=== PATIENT | female | born 1940 | race Caucasian/White ===

== ENCOUNTER 2017-09-12 12:27 | Emergency (ER) | payer OTHER ==
[2017-09-12] MEDS ORDERED: NA CHLORIDE 0.9% 1,000 ML ONE (13:44)
[2017-09-12 13:47] LABS: Absolute Lymphocytes (CBC) 1.4 K/uL (0.7-4.9); Absolute Monocytes 0.6 K/uL (0.1-1.3); Absolute Neutrophil 5.8 K/uL (1.8-8.0); Basophils % 0.3 % (0-1.3); Eosinophils % 0.6 % (0-4.4); Hematocrit 34.2 % (36.0-45.0); Lymphocytes % 17.9 % (15.3-44.8); MCH 30.4 pg (27.0-35.0); MCV 91.4 fL (80-100); MPV 9.2 fL (7.6-11.3); Monocytes % 7.5 % (3.3-12.3); RBC Red Blood Cell Count 3.74 M/uL (3.86-4.86)
[2017-09-12 13:52] LABS: Protime INR 2.24
[2017-09-12 14:01] LABS: Potassium 3.8 mEq/L (3.6-5.0)
--- NOTE | 2017-09-12 14:02 | RAD REPORT ---
EXAM DESCRIPTION: CT - Head Brain Wo Cont - 09/12/2017 1:55 pm CLINICAL HISTORY: Headache, blurry vision COMPARISON: 06/05/2010 TECHNIQUE: All CT scans are performed using dose optimization technique as appropriate and may inclu de automated exposure control or mA/KV adjustment according to patient size. FINDINGS: No intracranial hemorrhage, hydrocephalus or extra-axial fluid collection.Old lacunar infa rct is seen left basal ganglia. Mild brain atrophy with mild periventricular and deep white matter ch ronic microvascular ischemic changes.No areas of brain edema or evidence of midline shift. Extensive paranasal sinus opacification predominately in the ethmoid air cells noted. The calvarium i s intact. IMPRESSION: No acute intracranial abnormality. Prominent ethmoid sinusitis.
[2017-09-12 14:04] LABS: Albumin 3.6 g/dL (3.2-5.5); Bilirubin Total 0.9 mg/dL (0.3-1.2)
[2017-09-12 16:01] LABS: Urine Bacteria >50 /HPF (<20); Urine RBC <5 /HPF (NONE SEEN)
[2017-09-12 16:02] LABS: Urine Culture Reflex Order REFLEXED
[2017-09-12 16:02] LABS: Urine Blood TRACE (NEG); Urine Glucose NEGATIVE (NEG); Urine Protein 2+ (NEG); Urine pH 6.5 (5.0-7.0)
--- NOTE | 2017-09-12 16:14 | EDPHYS ---
Physician Documentation [facility] Name: Leeann Villalba Age: 77 yrs Sex: Female : 1940 Arrival Date: 09/12/2017 Time: 12:31 Bed 25 Private MD: ED Physician Edin Alvarado HPI: 09/12 14:00 This 77 yrs old Female presents to ER via Wheelchair with complaints of High pm1 Blood Sugar. 14:00 The patient or guardian reports hyperglycemia, that was potentially precipitated by no pm1 particular event, Treatment prior to arrival includes: ingestion of sugary substance, 1 spoon of peanut butter given by granddaughter to "help lower blood sugar". Onset: The symptoms/episode began/occurred today. Associated signs and symptoms: Pertinent negatives: diarrhea, nausea, vomiting. The patient has experienced similar episodes in the past, a few times. The patient has not recently seen a physician, and does not have an established primary care provider, just moved to [facility]. Patient with elevated blood sugar this AM with reading of 190. Patient was given a spoonful of peanut butter by granddaughter to lower the blood sugar and her finger stick was 270 prior to arrival. Patient reports that her blood sugars are actually well controlled and she usually has some blurry vision when her sugars are in the 200 range. Patient reports to me no focal motor deficits or gait changes from her prior stroke. 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 Historical: - Allergies: 12:41 No Known Allergies; aj - Home Meds: 14:32 metoprolol tartrate 25 mg Oral tab 1 tab once daily [Active]; ferrous sulfate 325 mg kr2 (65 mg iron) Oral tab daily [Active]; levothyroxine 100 mcg tab 1 tab once daily [Active]; aspirin 81 mg Oral TbEC 1 tab once daily [Active]; warfarin 1 mg Oral tab 1 tab once daily [Active]; warfarin 4 mg Oral tab 1 tab once daily [Active]; metformin 500 mg Oral tab 2 tabs once a day with evening meal [Active]; donepezil 5 mg oral tab 1 tab once daily [Active]; atorvastatin 40 mg oral tab 1 tab once daily [Active]; - PMHx: 12:41 CVA; Diabetes - NIDDM; Myocardial infarction; Hypertension; Hyperlipidemia; aj 14:32 Hypothyroidism; kr2 - PSHx: 12:41 None; aj - Immunization history:: Adult Immunizations up to date. - Social history:: Smoking status: Patient/guardian denies using tobacco. ROS: 14:00 Constitutional: Negative for fever, chills, and weight loss, ENT: Negative for injury, pm1 pain, and discharge, Neck: Negative for injury, pain, and swelling, Cardiovascular: Negative for chest pain, palpitations, and edema, Respiratory: Negative for shortness of breath, cough, wheezing, and pleuritic chest pain, Abdomen/GI: Negative for abdominal pain, nausea, vomiting, diarrhea, and constipation, Back: Negative for injury and pain, : Negative for injury, bleeding, discharge, and swelling, MS/Extremity: Negative for injury and deformity, Skin: Negative for injury, rash, and discoloration, Neuro: Negative for headache, weakness, numbness, tingling, and seizure. 14:00 Eyes: Positive for blurry vision, Negative for vision loss. Exam: 14:00 Constitutional: This is a well developed, well nourished patient who is awake, alert, pm1 and in no acute distress. Head/Face: Normocephalic, atraumatic. Eyes: Pupils equal round and reactive to light, extra-ocular motions intact. Lids and lashes normal. Conjunctiva and sclera are non-icteric and not injected. Cornea within normal limits. Periorbital areas with no swelling, redness, or edema. ENT: Nares patent. No nasal discharge, no septal abnormalities noted. Tympanic membranes are normal and external auditory canals are clear. Oropharynx with no redness, swelling, or masses, exudates, or evidence of obstruction, uvula midline. Mucous membranes moist. Neck: Trachea midline, no thyromegaly or masses palpated, and no cervical lymphadenopathy. Supple, full range of motion without nuchal rigidity, or vertebral point tenderness. No Meningismus. Chest/axilla: Normal chest wall appearance and motion. Nontender with no deformity. No lesions are appreciated. Cardiovascular: Regular rate and rhythm with a normal S1 and S2. No gallops, murmurs, or rubs. Normal PMI, no JVD. No pulse deficits. Respiratory: Lungs have equal breath sounds bilaterally, clear to auscultation and percussion. No rales, rhonchi or wheezes noted. No increased work of breathing, no retractions or nasal flaring. Abdomen/GI: Soft, non-tender, with normal bowel sounds. No distension or tympany. No guarding or rebound. No evidence of tenderness throughout. Back: No spinal tenderness. No costovertebral tenderness. Full range of motion. Skin: Warm, dry with normal turgor. Normal color with no rashes, no lesions, and no evidence of cellulitis. MS/ Extremity: Pulses equal, no cyanosis. Neurovascular intact. Full, normal range of motion. 14:00 Neuro: Orientation: is normal, Motor: moves all fours, strength is 5/5 in the right arm and right leg, strength is 4/5 in the left arm, Strength is 3/5 in the left leg, Baseline strength per patient. Vital Signs: 12:41 BP 129 / 67; Pulse 59; Resp 20; Temp 97.9; Pulse Ox 99% on R/A; Weight 78.93 kg; Height aj 5 ft. 4 in. (162.56 cm); Pain 0/10; 13:39 BP 130 / 48; Pulse 60; Resp 16; Pulse Ox 99% ; kr2 14:30 BP 134 / 30; Pulse 59; Resp 18; Pulse Ox 100% on R/A; kr2 15:17 BP 150 / 45; Pulse 59; Resp 17; Pulse Ox 98% on R/A; kr2 16:22 BP 154 / 96; Pulse 67; Resp 15; Pulse Ox 96% on R/A; kr2 12:41 Body Mass Index 29.87 (78.93 kg, 162.56 cm) aj MDM: 12:57 Patient medically screened. [facility] 16:13 Data reviewed: vital signs. Data interpreted: Pulse oximetry: on room air is 98 %. pm1 Interpretation: normal. Counseling: I had a detailed discussion with the patient and/or guardian regarding: the historical points, exam findings, and any diagnostic results supporting the discharge/admit diagnosis, lab results, radiology results, the need for outpatient follow up, to return to the emergency department if symptoms worsen or persist or if there are any questions or concerns that arise at home. 16:29 ED course: patient takes warfarin. Will treat patient with keflex due to no pm1 interactions found with warfarin pending urine culture result. 09/12 13:16 Order name: CBC with Diff; Complete Time: 14:08 pm1 09/12 13:16 Order name: CMP; Complete Time: 14:08 pm1 09/12 13:16 Order name: PT-INR; Complete Time: 14:08 pm1 09/12 13:16 Order name: Ptt, Activated; Complete Time: 14:08 pm1 09/12 15:11 Order name: Urine Microscopic Only; Complete Time: 16:05 pm1 09/12 15:25 Order name: Urine Dipstick--Ancillary (enter results); Complete Time: 16:05 bd 09/12 13:16 Order name: IV Saline Lock; Complete Time: 13:38 pm1 09/12 13:16 Order name: Urine Dipstick-Ancillary (obtain specimen); Complete Time: 15:14 pm1 09/12 13:16 Order name: CT Head Brain wo Cont; Complete Time: 14:08 pm1 09/12 13:16 Order name: Glucose Level; Complete Time: 13:38 pm1 09/12 16:03 Order name: Urine Culture EDMS 09/12 15:23 Order name: Glucose Level; Complete Time: 15:23 kr2 Administered Medications: 13:40 Drug: NS 0.9% 1000 ml Route: IV; Rate: 1000 ml; Site: right antecubital; kr2 15:15 Follow up: Response: No adverse reaction; IV Status: Completed infusion kr2 16:21 Drug: Rocephin 1 grams Route: IV; Rate: calculated rate; Site: right antecubital; kr2 16:51 Follow up: Response: No adverse reaction; IV Status: Completed infusion kr2 Point of Care Testing: Blood Glucose: 13:28 Blood Glucose: 277 mg/dL; kr2 15:23 Blood Glucose: 197 mg/dL; kr2 Ranges: Critical Glucose Levels:Adult <50 mg/dl or >400 mg/dl <40 mg/dl or >180 mg/dl Disposition: 09/13 10:53 Co-signature as Attending Physician, Edin Alvarado MD I agree with the assessment and ladonna plan of care. Disposition: 09/12/17 16:14 Discharged to Home. Impression: Urinary tract infection, site not specified, Hyperglycemia, unspecified. - Condition is Stable. - Discharge Instructions: Hyperglycemia, Urinary Tract Infection, Blood Glucose Monitoring, Adult. - Prescriptions for Keflex 500 mg Oral Capsule - take 1 capsule by ORAL route every 12 hours for 10 days; 20 capsule. - Medication Reconciliation Form, Thank You Letter, Antibiotic Education form. - Follow up: Emergency Department; When: As needed; Reason: Worsening of condition. Follow up: Private Physician; When: 2 - 3 days; Reason: Recheck today's complaints, Continuance of care, Re-evaluation by your physician. - Problem is new. - Symptoms have improved. Signatures: Dispatcher [employer] EDMS Maria Dolores Gunderson RN RN Edin Adair MD MD cha Marinas, Patrick, REGIONAL EDUCATION MANAGER REGIONAL EDUCATION MANAGER pm1 Nathalie Lazar RN RN kr2 Corrections: (The following items were deleted from the chart) 09/12 13:52 13:16 Urine Test ordered. pm1 kr2 14:32 12:41 Home Meds: Unable to obtain; more [place] 16:14 16:14 09/12/2017 16:14 Discharged to Home. Impression: Urinary tract infection, site pm1 not specified; Hyperglycemia, unspecified. Condition is Stable. Forms are Medication Reconciliation Form, Thank You Letter, Antibiotic Education, Prescription Opioid Use. pm1 16:53 16:14 09/12/2017 16:14 Discharged to Home. Impression: Urinary tract infection, site kr2 not specified; Hyperglycemia, unspecified. Condition is Stable. Forms are Medication Reconciliation Form, Thank You Letter, Antibiotic Education, Prescription Opioid Use. Follow up: Emergency Department; When: As needed; Reason: Worsening of condition. Follow up: Private Physician; When: 2 - 3 days; Reason: Recheck today's complaints, Continuance of care, Re-evaluation by your physician. Problem is new. Symptoms have improved. pm1
--- NOTE | 2017-09-12 16:14 | ER ---
Nurse's Notes [facility] Name: Leeann Villalba Age: 77 yrs Sex: Female : 1940 Arrival Date: 09/12/2017 Time: 12:31 Bed 25 Private MD: Diagnosis: Urinary tract infection, site not specified;Hyperglycemia, unspecified Presentation: 09/12 12:38 Presenting complaint: Patient states: Reports high blood sugar reading at home, 190 aj this and and [address]. Patient also reports that her vision is blurry and she has had increased difficulty ambulating, reporting most difficulty using her left arm and leg, damaged from pervious stroke. Transition of care: patient was not received from another setting of care. Onset of symptoms was September 11, 2017. Initial Sepsis Screen: Does the patient meet any 2 criteria? No. Patient's initial sepsis screen is negative. Does the patient have a suspected source of infection? No. Patient's initial sepsis screen is negative. Care prior to arrival: None. 12:38 Method Of Arrival: Wheelchair aj 12:38 Acuity: JEANA 3 aj Triage Assessment: 12:41 General: Appears in no apparent distress. comfortable, Behavior is calm, cooperative, aj appropriate for age. Pain: Denies pain. Neuro: Level of Consciousness is awake, alert, obeys commands, Oriented to person, place, time, situation, Appropriate for age Global Logistics Manager are weak on left Weakness in left arm(s) leg(s) Gait is unsteady, Speech is slurred, Facial symmetry appears normal, Pupils are constricted, Reports blurred vision. Respiratory: Airway is patent Respiratory effort is even, unlabored, Respiratory pattern is regular, symmetrical. GI: No signs and/or symptoms were reported involving the gastrointestinal system. Derm: Skin is intact, is healthy with good turgor, Skin is pink, warm \T\ dry. normal. Historical: - Allergies: 12:41 No Known Allergies; aj - Home Meds: 14:32 metoprolol tartrate 25 mg Oral tab 1 tab once daily [Active]; ferrous sulfate 325 mg kr2 (65 mg iron) Oral tab daily [Active]; levothyroxine 100 mcg tab 1 tab once daily [Active]; aspirin 81 mg Oral TbEC 1 tab once daily [Active]; warfarin 1 mg Oral tab 1 tab once daily [Active]; warfarin 4 mg Oral tab 1 tab once daily [Active]; metformin 500 mg Oral tab 2 tabs once a day with evening meal [Active]; donepezil 5 mg oral tab 1 tab once daily [Active]; atorvastatin 40 mg oral tab 1 tab once daily [Active]; - PMHx: 12:41 CVA; Diabetes - NIDDM; Myocardial infarction; Hypertension; Hyperlipidemia; aj 14:32 Hypothyroidism; kr2 - PSHx: 12:41 None; aj - Immunization history:: Adult Immunizations up to date. - Social history:: Smoking status: Patient/guardian denies using tobacco. Screenin:40 Abuse screen: Denies threats or abuse. Denies injuries from another. Nutritional kr2 screening: No deficits noted. Tuberculosis screening: No symptoms or risk factors identified. Fall Risk IV access (20 points). Assessment: 13:41 General: Appears in no apparent distress. comfortable, well groomed, well developed, kr2 well nourished, Behavior is calm, cooperative, appropriate for age. Pain: Denies pain. Neuro: Level of Consciousness is awake, alert, obeys commands, Oriented to person, place, time, situation. Cardiovascular: Capillary refill < 3 seconds in bilateral fingers Patient's skin is warm and dry. Respiratory: Airway is patent Respiratory effort is even, unlabored, Respiratory pattern is regular, symmetrical. GI: Abdomen is flat, non-distended. : No signs and/or symptoms were reported regarding the genitourinary system. Denies burning with urination. EENT: Oral mucosa is moist. Reports blurred vision since this morning. Derm: Skin is intact, is fragile, with poor turgor Skin is pink, warm \T\ dry. Musculoskeletal: Circulation, motion, and sensation intact. 15:14 Reassessment: Patient appears in no apparent distress at this time. Patient and/or kr2 family updated on plan of care and expected duration. Pain level reassessed. Patient is alert, oriented x 3, equal unlabored respirations, skin warm/dry/pink. States her vision has improved Patient denies pain at this time. Patient states symptoms have improved. 16:21 Reassessment: Patient appears in no apparent distress at this time. Patient and/or kr2 family updated on plan of care and expected duration. Pain level reassessed. Patient is alert, oriented x 3, equal unlabored respirations, skin warm/dry/pink. Patient denies pain at this time. Patient states feeling better. Vital Signs: 12:41 BP 129 / 67; Pulse 59; Resp 20; Temp 97.9; Pulse Ox 99% on R/A; Weight 78.93 kg; Height aj 5 ft. 4 in. (162.56 cm); Pain 0/10; 13:39 BP 130 / 48; Pulse 60; Resp 16; Pulse Ox 99% ; kr2 14:30 BP 134 / 30; Pulse 59; Resp 18; Pulse Ox 100% on R/A; kr2 15:17 BP 150 / 45; Pulse 59; Resp 17; Pulse Ox 98% on R/A; kr2 16:22 BP 154 / 96; Pulse 67; Resp 15; Pulse Ox 96% on R/A; kr2 12:41 Body Mass Index 29.87 (78.93 kg, 162.56 cm) aj ED Course: 12:31 Patient arrived in ED. sb2 12:40 Triage completed. aj 12:41 Arm band placed on left wrist. Patient placed in waiting room, Patient notified of wait aj time. 12:54 Nathalie Lazar, SHLOMO is Primary Nurse. kr2 12:57 Jg Roberson NP is PHCP. pm1 12:57 Edin Alvarado MD is Attending Physician. pm1 13:20 Patient has correct armband on for positive identification. Bed in low position. Call kr2 light in reach. Side rails up X 1. Adult w/ patient. Pulse ox on. NIBP on. Door closed. Warm blanket given. Head of bed elevated. 13:30 Inserted saline lock: 20 gauge in right antecubital area, using aseptic technique. kr2 Blood collected. 13:55 CT Head Brain wo Cont In Process Unspecified. EDMS 16:52 No provider procedures requiring assistance completed. IV discontinued, intact, kr2 bleeding controlled, No redness/swelling at site. Pressure dressing applied. Administered Medications: 13:40 Drug: NS 0.9% 1000 ml Route: IV; Rate: 1000 ml; Site: right antecubital; kr2 15:15 Follow up: Response: No adverse reaction; IV Status: Completed infusion kr2 16:21 Drug: Rocephin 1 grams Route: IV; Rate: calculated rate; Site: right antecubital; kr2 16:51 Follow up: Response: No adverse reaction; IV Status: Completed infusion kr2 Point of Care Testing: Blood Glucose: 13:28 Blood Glucose: 277 mg/dL; kr2 15:23 Blood Glucose: 197 mg/dL; kr2 Ranges: Outcome: 16:14 Discharge ordered by MD. pm1 16:52 Discharged to home via wheelchair, with family. kr2 16:52 Condition: good 16:52 Discharge instructions given to patient, family, Instructed on discharge instructions, follow up and referral plans. medication usage, Demonstrated understanding of instructions, follow-up care, medications, Prescriptions given X 1. 16:53 Patient left the ED. kr2 Addendum: 09/15/2017 09:26 Addendum: Culture Results: Positive urine culture. No further action required. Other: i w pt was prescribed Keflex, bacteria is sensitive to other cephalosporins, pt was told to follow up with PCP. Signatures: Dispatcher [employer] EDMaria Dolores Daugherty RN RN aj Williams, Irene, RN RN iw Marinas, Patrick, AMANDO ASSISTANT ACCOUNTING MANAGER pm1 Nathalie Lazar RN RN kr2 Elvia Manzanares sb2 Corrections: (The following items were deleted from the chart) 09/12 14:32 12:41 Home Meds: Unable to obtain; more barajas2 15:17 13:41 EENT: Oral mucosa is moist. kr2 kr2
[2017-09-12] MEDS ORDERED: CEFTRIAXONE/SWI 1gm 1 GM/10 ML SYR ONE (16:17)
== END 2017-09-12 16:53 | disposition home or self-care (01) ==
LOC: ER 12:27
DX: N39.0 Urinary tract infection, site not specified (principal); I10 Essential (primary) hypertension; E78.5 Hyperlipidemia, unspecified; E03.9 Hypothyroidism, unspecified; I25.2 Old myocardial infarction; Z79.01 Long term (current) use of anticoagulants; Z79.82 Long term (current) use of aspirin
CPT/HCPCS: 36415; 70450; 80053; 82962 ×2; 85025; 85610; 85730; 87077; 87086; 87088; 87186; 96361; 96365; 99284; J0696; J7030; 81003; 81015

== ENCOUNTER 2018-03-22 11:56 | Emergency (ER) | payer OTHER ==
[2018-03-22 13:03] LABS: Absolute Lymphocytes (CBC) 0.8 K/uL (0.7-4.9); Absolute Monocytes 0.3 K/uL (0.1-1.3); Absolute Neutrophil 4.3 K/uL (1.8-8.0); Basophils % 0.4 % (0-1.3); Eosinophils % 0.4 % (0-4.4); Hematocrit 34.4 % (36.0-45.0); Lymphocytes % 14.2 % (15.3-44.8); MCH 31.1 pg (27.0-35.0); MCV 90.4 fL (80-100); MPV 8.6 fL (7.6-11.3); Monocytes % 5.1 % (3.3-12.3); RBC Red Blood Cell Count 3.81 M/uL (3.86-4.86)
--- NOTE | 2018-03-22 13:16 | RAD REPORT ---
EXAM DESCRIPTION: CT - Head Brain Wo Cont - 03/22/2018 12:54 pm CLINICAL HISTORY: DIZZINESS Drowsiness, CVA COMPARISON: Head Brain Wo Cont dated 09/12/2017; HEAD BRAIN W O CONTRAST dated 06/05/2010 TECHNIQUE: All CT scans are performed using dose optimization technique as appropriate and may inclu de automated exposure control or mA/KV adjustment according to patient size. FINDINGS: There is a 10 x 10 mm hyperdense focal hemorrhage seen in the right cerebellum abutting th e fourth ventricle adjacent to the right cerebellar peduncle.No extra-axial fluid collection or hydro cephalus seen. No midline shift. Mild brain atrophy present. The paranasal sinuses and mastoids are clear. The calvarium is intact. IMPRESSION: 10 x 10 mm hyperdense focal bleed medial right cerebellar hemisphere. Findings were discussed with HEIDI Osborne in the ER 1:11 p.m. 03/22/2018 by telephone.
--- NOTE | 2018-03-22 13:17 | RAD REPORT ---
EXAM DESCRIPTION: RAD - Chest Single View - 03/22/2018 1:02 pm CLINICAL HISTORY: CHEST PAIN Chest pain. COMPARISON: CHEST SINGLE VIEW dated 06/05/2010; CHEST SINGLE VIEW dated 12/26/2009 FINDINGS: Portable technique limits examination quality. Minimal linear atelectasis suspected left lung base. The lungs are otherwise clear. The heart is norm al in size. No displaced fractures.
[2018-03-22 13:21] LABS: ALT/SGPT 26 U/L (12-78); AST/SGOT 18 U/L (15-37); Albumin 3.7 g/dL (3.4-5.0); Alkaline Phosphatase 123 U/L (45-117); BUN Blood Urea Nitrogen 15 mg/dL (7-18); Bicarbonate 25 mmol/L (21-32); Bilirubin Direct 0.2 mg/dL (0-0.2); Bilirubin Total 0.6 mg/dL (0.2-1.0); Glucose Level 198 mg/dL (74-106); NT PRO-BNP 2050 pg/mL (<450); Potassium 3.9 mmol/L (3.5-5.1); Protein, Total 7.3 g/dL (6.4-8.2); Sodium Level 142 mmol/L (136-145); Troponin (Emerg Dept Use Only) < 0.02 ng/mL (0.0-0.045)
[2018-03-22 13:23] LABS: Protime INR 12.61
[2018-03-22] MEDS ORDERED: VITAMIN K (ADULT) 10 MG/ML ONE (13:28)
[2018-03-22] MEDS ORDERED: ONDANSETRON 4 MG/2 ML VIAL ONE ×2 (13:28→14:02)
--- NOTE | 2018-03-22 13:42 | ER ---
Nurse's Notes [facility] Name: Leeann Villalba Age: 77 yrs Sex: Female : 1940 Arrival Date: 03/22/2018 Time: 12:00 Bed 6 Private MD: Diagnosis: Non traumatic cerebellar hemorrhage ;Coumadin Toxicity Presentation: 03/22 12:00 Presenting complaint: EMS states: Pt c/o N/V and dizziness for approx 12 hrs, hx of CVA ph w/ L sided deficits, denies abdominal pain or fever. Transition of care: patient was not received from another setting of care. Onset of symptoms was March 22, 2018. Risk Assessment: Do you want to hurt yourself or someone else? Patient reports no desire to harm self or others. Care prior to arrival: Glucose check: 178. 12:00 Method Of Arrival: EMS: [facility] ph 12:00 Acuity: JEANA 3 ph 12:09 Initial Sepsis Screen: Does the patient meet any 2 criteria? No. Patient's initial ph sepsis screen is negative. Does the patient have a suspected source of infection? No. Patient's initial sepsis screen is negative. 13:33 Acuity: JEANA 2 ph Historical: - Allergies: 12:06 No Known Allergies; ph - Home Meds: 12:06 aspirin 81 mg Oral TbEC 1 tab once daily [Active]; atorvastatin 40 mg Oral tab 1 tab ph once daily [Active]; donepezil 5 mg Oral tab 1 tab once daily [Active]; ferrous sulfate 325 mg (65 mg iron) Oral tab daily [Active]; levothyroxine 100 mcg tab 1 tab once daily [Active]; metformin 500 mg Oral tab 2 tabs once a day with evening meal [Active]; metoprolol tartrate 25 mg Oral tab 1 tab once daily [Active]; warfarin 4 mg Oral tab 1 tab once daily [Active]; - PMHx: 12:06 CVA; Diabetes - NIDDM; Hyperlipidemia; Hypertension; Hypothyroidism; Myocardial ph infarction; - PSHx: 12:06 None; ph - Immunization history:: Adult Immunizations unknown. - Social history:: The patient lives at home. - Ebola Screening: : No symptoms or risks identified at this time. Screenin:08 Abuse screen: Denies threats or abuse. Denies injuries from another. Nutritional ph screening: No deficits noted. Tuberculosis screening: No symptoms or risk factors identified. Fall Risk Fall in past 12 months (25 points). Secondary diagnosis (15 points) CVA, IV access (20 points). Ambulatory Aid- None/Bed Rest/Nurse Assist (0 pts). Gait- Weak (10 pts.). Mental Status- Oriented to own ability (0 pts). Total Gabriel Fall Scale indicates High Risk Score (45 or more points). Fall prevention measures have been instituted. Frequent Obs/Assessments Occuring Family Present and informed to notify staff if the need to leave the bedside As available patient and family educated on Fall Prevention Program and Strategies. Assessment: 12:44 General: Appears in no apparent distress. uncomfortable, slender, Behavior is calm, ph cooperative, appropriate for age, Denies fever, chills. Pain: Denies pain. Neuro: Level of Consciousness is awake, alert, obeys commands, Oriented to person, place, time, situation, Reports dizziness, since " early this morning" Denies difficulty swallowing, numbness headache. Cardiovascular: Reports lightheadedness, Denies chest pain, shortness of breath, syncope, Capillary refill < 3 seconds in bilateral fingers Patient's skin is warm and dry. Rhythm is sinus bradycardia. Respiratory: Airway is patent Respiratory effort is even, unlabored. GI: Abdomen is flat, non-distended, Bowel sounds present X 4 quads. Reports nausea, vomiting, Patient currently denies abdominal pain, diarrhea. : Denies burning with urination, urinary frequency. Derm: Skin is intact, is fragile, is thin, Skin is pink, warm \\T\\ dry. Bruising that is dark purple, on right bicep. Musculoskeletal: Circulation, motion, and sensation intact. Range of motion: limited in L arm and leg r/t previous CVA. 12:52 Reassessment: Patient appears in no apparent distress at this time. Patient and/or ph family updated on plan of care and expected duration. Pain level reassessed. Patient is alert, oriented x 3, equal unlabored respirations, skin warm/dry/pink. Pt taken to CT via stretcher. 13:40 Reassessment: Consent for FFP signed by pt's daughter. aa5 13:50 Reassessment: Report given to [facility]. Reassessment: Patient appears in no apparent ph distress at this time. Patient and/or family updated on plan of care and expected duration. Pain level reassessed. Patient is alert, oriented x 3, equal unlabored respirations, skin warm/dry/pink. Pt remains awake and alert, GCS 15, continues to c/o nausea and dizziness, denies headache at this time, awaiting [facility] for transport. 14:08 Reassessment: Patient appears in no apparent distress at this time. [facility] at bedside at this time. 14:24 Reassessment: Patient appears in no apparent distress at this time. Patient is alert, ph oriented x 3, equal unlabored respirations, skin warm/dry/pink. FFPs received from blood bank and given to [facility] to transfuse during transport, pt taken to [facility]. Vital Signs: 12:02 BP 179 / 90; Pulse 75; Resp 20; Temp 98.8; Pulse Ox 95% on R/A; Weight 77.11 kg; Height ph 5 ft. 4 in. (162.56 cm); Pain 0/10; 12:53 BP 138 / 57; Pulse 71; Resp 16; Pulse Ox 97% on R/A; ph 13:35 BP 163 / 69; Pulse 72; ph 13:47 BP 134 / 72; Pulse 74; Resp 18; Pulse Ox 97% on R/A; ph 14:07 BP 116 / 71; Pulse 72 MON; Resp 16; Pulse Ox 94% on R/A; Pain 0/10; sg 12:02 Body Mass Index 29.18 (77.11 kg, 162.56 cm) ph [place] Coma Score: 14:07 Eye Response: spontaneous(4). Verbal Response: oriented(5). Motor Response: obeys sg commands(6). Total: 15. ED Course: 12:00 Patient arrived in ED. ph 12:01 Anton Martinez PA is PHCP. jr8 12:01 Sudheer Marcelo MD is Attending Physician. jr8 12:02 Triage completed. ph 12:06 Arm band placed on. ph 12:09 Patient has correct armband on for positive identification. Placed in gown. Bed in low ph position. Call light in reach. Side rails up X2. manager monitoring on. Pulse ox on. NIBP on. Warm blanket given. 12:10 EKG done, by ED staff, reviewed by nAton GORDON. jb1 12:44 Kathy Mullins, RN is Primary Nurse. ph 12:52 Initial lab(s) drawn, by me, sent to lab. Inserted saline lock: 22 gauge in right jb1 antecubital area, using aseptic technique. Blood collected. 12:54 CT Head Brain wo Cont In Process Unspecified. EDMS 13:01 XRAY Chest (1 view) In Process Unspecified. EDMS 13:16 initiated a transfer with Britany at the [facility] transfer center. eb 13:23 Notified Nurse Practitioner and/or Physician Terrazzo Journeyman of a critical lab result(s), PT aa5 152.7 and INR 12.61. 13:[address] Pathak the Neurosurgeon cellular plastics cutter inspector structural bonding for [facility] with PA for eb patient transfer consulation. 13:35 Administrative approval given by Rachel Diaz at the [facility] Transfer Center/ eb Dr. Pathak has accepted the patient in transfer/ Pt going to [address] [place] [address] bed 14/ report to be called to [phone]. 13:38 called the [employer] flight crew and spoke with ADDISON/ He will call back with an eta of eb the helicopter. 13:43 ADDISON from [employer] flight called and connected with the nurse of the patient/ eb [facility] is showing a 20 min ETA. 14:05 Inserted saline lock: 22 gauge in right forearm, using aseptic technique. IV inserted sg by Jean KEENAN. 14:25 No provider procedures requiring assistance completed. Patient transferred, IV remains ph in place. Administered Medications: 13:30 Drug: Vitamin K1 10 mg Route: Sub-Q; Site: right lower abdomen; ph 14:00 Follow up: Response: No adverse reaction ph 13:30 Drug: Zofran 4 mg Route: IVP; Site: right antecubital; ph 13:45 Follow up: Response: No adverse reaction; Nausea unchanged; Vomiting unchanged ph 13:43 Drug: Labetalol 10 mg Route: IVP; Infused Over: 2 mins; Site: right antecubital; ph 14:00 Follow up: Response: No adverse reaction; Blood pressure is lowered ph 13:57 Drug: Zofran 4 mg Route: IVP; Site: right antecubital; ph 14:15 Follow up: Response: No adverse reaction ph Outcome: 13:41 ER care complete, transfer ordered by MD. hoffman 14:28 Patient left the ED. ph 14:28 Transferred by helicopter to [facility], Transfer form completed. ph X-rays sent w/ patient. 14:28 Condition: stable 14:28 Instructed on the need for transfer. Signatures: Dispatcher [employer] EDMS Christopher Jean-Baptiste jb1 Eddie Mendez RN RN Paola Pisano RN RN Anton Mccullough PA PA jr8 Kathy Mullins RN RN ph MarceloSudheer white MD MD gs Botello, Elizabeth eb Corrections: (The following items were deleted from the chart) 12:23 12:06 Home Meds: warfarin 1 mg Oral tab 1 tab once daily; ph ph 12:53 12:52 EKG done, by ED staff, reviewed by Anton colón1 jb1 18:51 18:48 Condition: stable ph ph 18:51 18:48 Transferred by helicopter to [facility], Transfer form ph completed. X-rays sent w/ patient. ph 18:51 18:48 Instructed on the need for transfer, ph ph
--- NOTE | 2018-03-22 13:43 | EDPHYS ---
Physician Documentation [facility] Name: Leeann Villalba Age: 77 yrs Sex: Female : 1940 Arrival Date: 03/22/2018 Time: 12:00 Bed 6 Private MD: ED Physician Sudheer Marcelo HPI: 03/22 13:00 This 77 yrs old Female presents to ER via EMS with complaints of jr8 Nausea/Vomiting, Dizziness. 13:00 The patient presents to the emergency department with nausea, vomiting. Onset: The jr8 symptoms/episode began/occurred acutely, today. Possible causes: unknown. The symptoms are aggravated by nothing. The symptoms are alleviated by nothing. Associated signs and symptoms: Pertinent positives: dizziness. Severity of symptoms: At their worst the symptoms were moderate in the emergency department the symptoms are unchanged. The patient has not experienced similar symptoms in the past. The patient has not recently seen a physician. Stated that she woke up with dizziness, n/v that started all at the same time. Denies any other symptoms . 13:58 Onset: The symptoms/episode began/occurred this morning, at 02:00. Associated signs and gs symptoms: Pertinent positives: vomiting. Historical: - Allergies: 12:06 No Known Allergies; ph - Home Meds: 12:06 aspirin 81 mg Oral TbEC 1 tab once daily [Active]; atorvastatin 40 mg Oral tab 1 tab ph once daily [Active]; donepezil 5 mg Oral tab 1 tab once daily [Active]; ferrous sulfate 325 mg (65 mg iron) Oral tab daily [Active]; levothyroxine 100 mcg tab 1 tab once daily [Active]; metformin 500 mg Oral tab 2 tabs once a day with evening meal [Active]; metoprolol tartrate 25 mg Oral tab 1 tab once daily [Active]; warfarin 4 mg Oral tab 1 tab once daily [Active]; - PMHx: 12:06 CVA; Diabetes - NIDDM; Hyperlipidemia; Hypertension; Hypothyroidism; Myocardial ph infarction; - PSHx: 12:06 None; ph - Immunization history:: Adult Immunizations unknown. - Social history:: The patient lives at home. - Ebola Screening: : No symptoms or risks identified at this time. ROS: 13:00 Eyes: Negative for injury, pain, redness, and discharge, ENT: Negative for injury, jr8 pain, and discharge, Neck: Negative for injury, pain, and swelling, Cardiovascular: Negative for chest pain, palpitations, and edema, Respiratory: Negative for shortness of breath, cough, wheezing, and pleuritic chest pain, Back: Negative for injury and pain, MS/Extremity: Negative for injury and deformity, Skin: Negative for injury, rash, and discoloration. 13:00 Abdomen/GI: Positive for nausea and vomiting, Negative for abdominal pain, diarrhea, constipation, abdominal cramps, abdominal distension, anorexia, dysphagia, hematemesis, black/tarry stool, rectal pain, rectal bleeding, bowel incontinence, flatulence. 13:00 Neuro: Positive for dizziness, Negative for altered mental status, gait disturbance, headache, hearing loss, loss of consciousness, numbness, seizure activity, speech changes, syncope, near syncope, tingling, tinnitus, tremor, visual changes, weakness. 13:58 Neuro: Positive for gs Exam: 13:00 Eyes: Pupils equal round and reactive to light, extra-ocular motions intact. Lids and jr8 lashes normal. Conjunctiva and sclera are non-icteric and not injected. Cornea within normal limits. Periorbital areas with no swelling, redness, or edema. ENT: Nares patent. No nasal discharge, no septal abnormalities noted. Tympanic membranes are normal and external auditory canals are clear. Oropharynx with no redness, swelling, or masses, exudates, or evidence of obstruction, uvula midline. Mucous membranes moist. Neck: Trachea midline, no thyromegaly or masses palpated, and no cervical lymphadenopathy. Supple, full range of motion without nuchal rigidity, or vertebral point tenderness. No Meningismus. Cardiovascular: Regular rate and rhythm with a normal S1 and S2. No gallops, murmurs, or rubs. Normal PMI, no JVD. No pulse deficits. Respiratory: Lungs have equal breath sounds bilaterally, clear to auscultation and percussion. No rales, rhonchi or wheezes noted. No increased work of breathing, no retractions or nasal flaring. Abdomen/GI: Soft, non-tender, with normal bowel sounds. No distension or tympany. No guarding or rebound. No evidence of tenderness throughout. Back: No spinal tenderness. No costovertebral tenderness. Full range of motion. Skin: Warm, dry with normal turgor. Normal color with no rashes, no lesions, and no evidence of cellulitis. MS/ Extremity: Pulses equal, no cyanosis. Neurovascular intact. Full, normal range of motion. 13:00 Neuro: Orientation: to person, place, time \T\ situation. Mentation: is normal, Memory: is normal, immediate memory is intact, recent memory is intact, remote memory is intact, Cranial nerves: CN I not tested, CN II- XII are normal as tested, visual enriquez are intact. extraocular movements are intact, Facial palsy and sensory deficits are absent. right lateral nystagmus, Speech is clear and appropriate. Tongue strength is normal, Cerebellar function: dysmetria is noted on the left, Motor: moves all fours, strength is 5/5 in the right arm and right leg, Strength is 3/5 in the left arm and left leg, Sensation: no obvious gross deficits, Gait: not tested. seizure activity, is not displayed by the patient, Abnormal movements: there are no abnormal movements, Patient is at baseline per her from previous CVA that affected Left side of body. 13:56 Constitutional: The patient appears alert, awake. gs 13:56 Cardiovascular: Rate: normal. 13:56 Respiratory: the patient does not display signs of respiratory distress, Breath sounds: are clear throughout. 13:56 Abdomen/GI: Palpation: abdomen is soft and non-tender. 13:56 Neuro: Orientation: to person, place, time \T\ situation. Cranial nerves: CN II- XII are normal as tested, Cerebellar function: dysmetria is noted on the left, Sensation: no obvious gross deficits. Vital Signs: 12:02 BP 179 / 90; Pulse 75; Resp 20; Temp 98.8; Pulse Ox 95% on R/A; Weight 77.11 kg; Height ph 5 ft. 4 in. (162.56 cm); Pain 0/10; 12:53 BP 138 / 57; Pulse 71; Resp 16; Pulse Ox 97% on R/A; ph 13:35 BP 163 / 69; Pulse 72; ph 13:47 BP 134 / 72; Pulse 74; Resp 18; Pulse Ox 97% on R/A; ph 14:07 BP 116 / 71; Pulse 72 MON; Resp 16; Pulse Ox 94% on R/A; Pain 0/10; sg 12:02 Body Mass Index 29.18 (77.11 kg, 162.56 cm) ph [place] Coma Score: 14:07 Eye Response: spontaneous(4). Verbal Response: oriented(5). Motor Response: obeys sg commands(6). Total: 15. MDM: 12:01 Patient medically screened. jr8 13:15 Data reviewed: vital signs, nurses notes, lab test result(s), radiologic studies, CT jr8 scan. Data interpreted: Pulse oximetry: on room air is 97 %. Interpretation: normal. Counseling: I had a detailed discussion with the patient and/or guardian regarding: the historical points, exam findings, and any diagnostic results supporting the discharge/admit diagnosis, lab results, radiology results, the need to transfer to another facility, for higher level of care, [facility] does not immediately have the required specialist. ED course: Patient has cerebellar hemorrhage present on CT scan. Notified by Dr. Veliz. 13:38 ED course: Spoke with Dr. Cade who excepted to Neuro ICU. ED course: Blood pressure jr8 increased to 160s systolic. Will give labetolol for now to bring it to between 140-150 systolic. 13:56 Differential diagnosis: ischemic, cva, hemorrhagic cva, tia, vertigo. gs 22:36 Other consultation: pt seen and examined,, personally examined awake alert airway open gs lungs clear no neurologic deterioration, supervised and reviewed case and plan with mlp. 03/22 12:32 Order name: Basic Metabolic Panel; Complete Time: 13:22 03/22 12:32 Order name: CBC with Diff; Complete Time: 13:11 03/22 12:32 Order name: LFT's; Complete Time: 13:22 03/22 12:32 Order name: Magnesium; Complete Time: 13:22 8 03/22 12:32 Order name: NT PRO-BNP; Complete Time: 13:22 8 03/22 12:32 Order name: PT-INR; Complete Time: 13:24 03/22 12:32 Order name: XRAY Chest (1 view); Complete Time: 13:22 03/22 12:32 Order name: CT Head Brain wo Cont; Complete Time: 13:22 8 03/22 12:32 Order name: Troponin (emerg Dept Use Only); Complete Time: 13:03/22 13:27 Order name: Bb Add On aa5 03/22 13:27 Order name: Type And Screen aa5 03/22 13:44 Order name: Fresh Frozen Plasma [facility] 03/22 12:32 Order name: EKG; Complete Time: 12:33 [facility] 03/22 12:32 Order name: Cardiac monitoring; Complete Time: 12:34 [facility] 03/22 12:32 Order name: EKG - Nurse/Tech; Complete Time: 12:35 [facility] 03/22 12:32 Order name: IV Saline Lock; Complete Time: 12:50 [facility] 03/22 12:32 Order name: Labs collected and sent; Complete Time: 12:51 [facility] 03/22 12:32 Order name: O2 Per Protocol; Complete Time: 12:35 [facility] 03/22 12:32 Order name: O2 Sat Monitoring; Complete Time: 12:35 Administered Medications: 13:30 Drug: Vitamin K1 10 mg Route: Sub-Q; Site: right lower abdomen; ph 14:00 Follow up: Response: No adverse reaction ph 13:30 Drug: Zofran 4 mg Route: IVP; Site: right antecubital; ph 13:45 Follow up: Response: No adverse reaction; Nausea unchanged; Vomiting unchanged ph 13:43 Drug: Labetalol 10 mg Route: IVP; Infused Over: 2 mins; Site: right antecubital; ph 14:00 Follow up: Response: No adverse reaction; Blood pressure is lowered ph 13:57 Drug: Zofran 4 mg Route: IVP; Site: right antecubital; ph 14:15 Follow up: Response: No adverse reaction ph Disposition: 13:59 Co-signature as Attending Physician, Sudheer Marcelo MD. gs Disposition: 03/22/18 13:[address] [facility]. Diagnosis are Non traumatic cerebellar hemorrhage , Coumadin Toxicity . - Reason for transfer: Higher level of care. - Accepting physician is Dr. Cade. - Condition is Fair. - Problem is new. - Symptoms are unchanged. Critical care time excluding procedures: 13:56 Critical care time: Bedside Care: 10 minutes, Consultation: 10 minutes, Family gs Intervention: 10 minutes. Total time: 30 minutes Signatures: Dispatcher [employer] EDAnton Lagos PA PA jr8 Kathy Mullins RN RN ph Sudheer Marcelo MD MD gs Corrections: (The following items were deleted from the chart) 12:23 12:06 Home Meds: warfarin 1 mg Oral tab 1 tab once daily; ph ph 14:28 13:41 03/22/2018 13:[address] [facility]. Diagnosis is ph Non traumatic cerebellar hemorrhage ; Coumadin Toxicity . Reason for transfer: Higher level of care. Accepting physician is Dr. Cade. Condition is Fair. Problem is new. Symptoms are unchanged. jr8
[2018-03-22] MEDS ORDERED: Nicardipine/NS 0 MG/0 ML KIT IV ONE (13:44)
[2018-03-22] MEDS ORDERED: LABETALOL HCL 100 MG/20 ML ONE (13:46)
[2018-03-22] MEDS ORDERED: NA CHLORIDE 0.9% 500 ML ONE (14:25)
--- NOTE | 2018-03-23 05:51 | EKG ---
Test Date: 2018-03-22 Test Time: 12:11:37 Executive Relations Specialist: EDWIN MEASUREMENT RESULTS: Intervals: Rate: 69 CA: 134 QRSD: 82 QT: 476 QTc: 510 [place]: P: 18 CA: 134 QRS: 9 T: 13 INTERPRETIVE STATEMENTS: Normal sinus rhythm Prolonged QT Abnormal ECG Compared to ECG 06/05/2010 23:01:19 Prolonged QT interval now present Electronically Signed On 03-23-18 05:51:02 GENERAL MANAGER by Patrick Díaz
== END 2018-03-22 14:28 | disposition short-term general hospital (02) ==
LOC: ER 11:56
PROC: 30233K1 Transfusion of Nonautologous Frozen Plasma into Peripheral Vein, Percutaneous Approach (ICD-10-PCS; principal; 2018-03-22)
DX: I61.4 Nontraumatic intracerebral hemorrhage in cerebellum (principal); T45.515A Adverse effect of anticoagulants, initial encounter; I10 Essential (primary) hypertension; E11.9 Type 2 diabetes mellitus without complications; E78.5 Hyperlipidemia, unspecified; E03.9 Hypothyroidism, unspecified; I25.2 Old myocardial infarction; Z79.01 Long term (current) use of anticoagulants; Z79.82 Long term (current) use of aspirin
CPT/HCPCS: 36415; 36430; 70450; 71045; 80048; 80076; 83735; 83880; 84484; 85025; 85610; 86850; 86900; 86901; 93005; 96372; 96374; 96375; 99285; J2405 ×2; J3430; P9059

== ENCOUNTER 2018-05-12 09:55 | Emergency (ER) | payer OTHER ==
--- OUTSIDE RECORDS SUMMARY | 2018-05-12 09:58 | XMS REPORT | Clinical Summary ---
:1940 Author Organization [facility] Address [address] [place] [address] Care Team Providers Name Role Phone Unavailable Primary Care Provider Unavailable Allergies No Known Allergies Medications Medication Sig Dispensed Refills Start Date End Date Status atorvastatin Take 40 mg by 0 Active (LIPITOR) 40 MG mouth. tablet donepezil (ARICEPT) Take 5 mg by 0 Active 5 MG tablet mouth nightly. metFORMIN Take 500 mg 0 Active (GLUCOPHAGE) 500 MG by mouth tablet daily with dinner. levothyroxine Take 100 mcg 0 Active (SYNTHROID, by mouth LEVOTHROID) 100 MCG Every morning tablet on an empty stomach. ferrous sulfate 325 Take 325 mg 0 Active (65 FE) MG tablet by mouth. warfarin (COUMADIN) Take 3 mg by 0 03/26/2018 Discontinued 3 MG tablet mouth daily. metoprolol Take 25 mg by 0 03/26/2018 Discontinued (TOPROL-XL) 25 MG 24 mouth daily. hr tablet warfarin (COUMADIN) Take 4 mg by 0 03/26/2018 Discontinued 4 MG tablet mouth daily. metoprolol Take 1 tablet 30 tablet 0 03/26/2018 04/25/2018 (TOPROL-XL) 25 MG 24 (25 mg total) hr tablet by mouth daily for 30 days. 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 Never 03/22/2018 How many drinks containing alcohol do you have on a typical Not asked day when you are drinking? How often do you have six or more drinks on one occasion? Not asked Sex Assigned at Date Recorded Not on file Job Start Date Occupation Industry Not on file Not on file Not on file Travel History Travel Start Travel End No recent travel history available. Last Filed Vital Signs Vital Sign Reading Time Taken Blood Pressure 128/50 03/26/2018 2:00 PM POWER CHECKER Pulse 68 03/26/2018 3:00 PM POWER CHECKER Temperature 36.7 C (98.1 F) 03/26/2018 2:00 PM POWER CHECKER Respiratory Rate 21 03/26/2018 12:00 PM POWER CHECKER Oxygen Saturation 96% 03/26/2018 3:00 PM POWER CHECKER Inhaled Oxygen Concentration - - Weight 68.8 kg (151 lb 10.8 oz) 03/22/2018 3:43 PM POWER CHECKER Height 162.6 cm (5' 4") 03/22/2018 3:43 PM POWER CHECKER Body Mass Index 26.04 03/22/2018 3:43 PM POWER CHECKER Plan of Treatment Not on file Procedures Procedure Name Priority Date/Time Associated Comments Diagnosis REPORT OF PROCEDURE - 03/31/2018 2:02 ENDOSCOPY SCAN PM POWER CHECKER RHYTHM STRIP - SCAN 03/31/2018 2:02 PM POWER CHECKER POCT-GLUCOSE METER Routine 03/26/2018 12:32 Results for this PM POWER CHECKER procedure are in the results section. POCT-GLUCOSE METER Routine 03/26/2018 8:32 Results for this AM POWER CHECKER procedure are in the results section. CBC W/PLT COUNT & AUTO Routine 03/26/2018 7:13 Results for this DIFFERENTIAL AM POWER CHECKER procedure are in the results section. PROTHROMBIN TIME/INR Routine 03/26/2018 7:13 Results for this AM POWER CHECKER procedure are in the results section. BASIC METABOLIC PANEL Routine 03/26/2018 7:13 Results for this (7) AM POWER CHECKER procedure are in the results section. CBC W/PLT COUNT & AUTO Routine 03/26/2018 7:13 Results for this DIFFERENTIAL AM POWER CHECKER procedure are in the results section. POCT-GLUCOSE METER Routine 03/25/2018 10:38 Results for this PM POWER CHECKER procedure are in the results section. POCT-GLUCOSE METER Routine 03/25/2018 5:11 Results for this PM POWER CHECKER procedure are in the results section. POCT-GLUCOSE METER Routine 03/25/2018 11:40 Results for this AM POWER CHECKER procedure are in the results section. PT/APTT Routine 03/25/2018 7:14 Results for this AM POWER CHECKER procedure are in the results section. PROTHROMBIN TIME/INR Routine 03/25/2018 7:14 Results for this AM POWER CHECKER procedure are in the results section. BASIC METABOLIC PANEL Routine 03/25/2018 7:08 Results for this (7) AM POWER CHECKER procedure are in the results section. POCT-GLUCOSE METER Routine 03/25/2018 6:33 Results for this AM POWER CHECKER procedure are in the results section. CBC W/PLT COUNT & AUTO Routine 03/25/2018 6:30 Results for this DIFFERENTIAL AM POWER CHECKER procedure are in the results section. CBC W/PLT COUNT & AUTO Routine 03/25/2018 6:30 Results for this DIFFERENTIAL AM POWER CHECKER procedure are in the results section. POCT-GLUCOSE METER Routine 03/25/2018 12:05 Results for this AM POWER CHECKER procedure are in the results section. POCT-GLUCOSE METER Routine 03/24/2018 5:18 Results for this PM POWER CHECKER procedure are in the results section. POCT-GLUCOSE METER Routine 03/24/2018 12:31 Results for this PM POWER CHECKER procedure are in the results section. VENOUS DOPPLER LEGS Routine 03/24/2018 6:24 Results for this BILATERAL AM POWER CHECKER procedure are in the results section. POCT-GLUCOSE METER Routine 03/24/2018 6:06 Results for this AM POWER CHECKER procedure are in the results section. CBC W/PLT COUNT & AUTO Routine 03/24/2018 4:42 Results for this DIFFERENTIAL AM POWER CHECKER procedure are in the results section. PROTHROMBIN TIME/INR Routine 03/24/2018 4:42 Results for this AM POWER CHECKER procedure are in the results section. PT/APTT Routine 03/24/2018 4:42 Results for this AM POWER CHECKER procedure are in the results section. BASIC METABOLIC PANEL Routine 03/24/2018 4:42 Results for this (7) AM POWER CHECKER procedure are in the results section. CBC W/PLT COUNT & AUTO Routine 03/24/2018 4:42 Results for this DIFFERENTIAL AM POWER CHECKER procedure are in the results section. POCT-GLUCOSE METER Routine 03/24/2018 12:48 Results for this AM POWER CHECKER procedure are in the results section. PROTHROMBIN TIME/INR Routine 03/23/2018 6:38 Results for this PM POWER CHECKER procedure are in the results section. POCT-GLUCOSE METER Routine 03/23/2018 6:35 Results for this PM POWER CHECKER procedure are in the results section. PROTHROMBIN TIME/INR Routine 03/23/2018 2:48 Results for this PM POWER CHECKER procedure are in the results section. POCT-GLUCOSE METER Routine 03/23/2018 2:31 Results for this PM POWER CHECKER procedure are in the results section. MR MRA NECK WITH AND Routine 03/23/2018 2:30 Results for this WITHOUT CONTRAST PM POWER CHECKER procedure are in the results section. MR MRA HEAD WITH AND Routine 03/23/2018 2:30 Results for this WITHOUT CONTRAST PM POWER CHECKER procedure are in the results section. MR BRAIN WITHOUT & Routine 03/23/2018 2:30 Results for this WITH IV CONTRAST PM POWER CHECKER procedure are in the results section. TROPONIN I Routine 03/23/2018 9:34 Results for this AM POWER CHECKER procedure are in the results section. PROTHROMBIN TIME/INR STAT 03/23/2018 9:31 Results for this AM POWER CHECKER procedure are in the results section. POCT-GLUCOSE METER Routine 03/23/2018 6:25 Results for this AM POWER CHECKER procedure are in the results section. CBC W/PLT COUNT & AUTO Routine 03/23/2018 4:40 Results for this DIFFERENTIAL AM POWER CHECKER procedure are in the results section. CBC W/PLT COUNT & AUTO Routine 03/23/2018 4:40 Results for this DIFFERENTIAL AM POWER CHECKER procedure are in the results section. PROTHROMBIN TIME/INR STAT 03/23/2018 4:40 Results for this AM POWER CHECKER procedure are in the results section. PHOSPHORUS Routine 03/23/2018 4:40 Results for this AM POWER CHECKER procedure are in the results section. MAGNESIUM Routine 03/23/2018 4:40 Results for this AM POWER CHECKER procedure are in the results section. BASIC METABOLIC PANEL Routine 03/23/2018 4:40 Results for this (7) AM POWER CHECKER procedure are in the results section. DRUG SCREEN, URINE, Routine 03/23/2018 12:55 COMPREHENSIVE AM POWER CHECKER PROTHROMBIN TIME/INR Routine 03/23/2018 12:02 Results for this AM POWER CHECKER procedure are in the results section. TROPONIN I STAT 03/23/2018 12:02 Results for this AM POWER CHECKER procedure are in the results section. POCT-GLUCOSE METER Routine 03/22/2018 11:57 Results for this PM POWER CHECKER procedure are in the results section. PROTHROMBIN TIME/INR STAT 03/22/2018 6:59 Results for this PM POWER CHECKER procedure are in the results section. ECG 12-LEAD Routine 03/22/2018 5:22 Results for this PM POWER CHECKER procedure are in the results section. CBC W/PLT COUNT & AUTO Routine 03/22/2018 4:26 Results for this DIFFERENTIAL PM POWER CHECKER procedure are in the results section. CBC W/PLT COUNT & AUTO Routine 03/22/2018 4:26 Results for this DIFFERENTIAL PM POWER CHECKER procedure are in the results section. APTT Routine 03/22/2018 3:41 Results for this PM POWER CHECKER procedure are in the results section. PROTHROMBIN TIME/INR Routine 03/22/2018 3:41 Results for this PM POWER CHECKER procedure are in the results section. HEPATIC FUNCTION PANEL Routine 03/22/2018 3:41 Results for this PM POWER CHECKER procedure are in the results section. FIBRINOGEN STAT 03/22/2018 3:41 Results for this PM POWER CHECKER procedure are in the results section. after 05/11/2017 Results EKG-SCANNED (03/31/2018 2:02 PM POWER CHECKER) Narrative Performed At RHYTHM STRIP - SCAN (03/31/2018 2:02 PM POWER CHECKER) Narrative Performed At POC-Glucose meter (03/26/2018 12:32 PM POWER CHECKER)Only the most recent of15 resultswithin the time period is included. POC-Glucose Meter 180 (H)Comment: TESTED AT 70 - 110 mg/dL [facility] [address] [facility] [id number] Specimen Blood Performing Organization Address City/State/Zipcode Phone Number [address] [address] CENTER CBC with platelet count + automated diff (03/26/2018 7:13 AM POWER CHECKER)Only the most recent of5 resultswithin the time period is included. WBC 4.7 3.5 - 10.5 K/L [facility] RBC 3.12 (L) 3.93 - 5.22 M/L [facility] Hemoglobin 9.4 (L) 11.2 - 15.7 GM/DL [facility] Hematocrit 29.1 (L) 34.1 - 44.9 % [facility] MCV 93.3 79.4 - 94.8 fL [facility] MCH 30.1 25.6 - 32.2 pg [facility] MCHC 32.3 32.2 - 35.5 GM/DL [facility] RDW 12.9 11.7 - 14.4 % [facility] Platelets 139 (L) 150 - 450 K/CU MM [facility] MPV 10.9 9.4 - 12.3 fL [facility] nRBC 0 0 - 0 /100 WBC [facility] % Neutros 60 % [facility] % Lymphs 29 % [facility] % Monos 9 % [facility] % Eos 2 % [facility] % Baso 0 % [facility] # Neutros 2.79 1.56 - 6.13 K/L [facility] # Lymphs 1.35 1.18 - 3.74 K/L [facility] # Monos 0.44 (H) 0.24 - 0.36 K/L [facility] # Eos 0.08 0.04 - 0.36 K/L [facility] # Baso 0.02 0.01 - 0.08 K/L [facility] Immature Granulocytes-Relative 0 0 - 1 % [facility] Specimen Blood Performing Organization Address City/State/Zipcode Phone Number [phone] [place] [address] CENTER Prothrombin time/INR (03/26/2018 7:13 AM POWER CHECKER)Only the most recent of10 resultswithin the time period is included. Protime 14.5 11.7 - 14.7 seconds [facility] INR 1.1 <=5.9 [facility] Specimen Blood Narrative Performed At RECOMMENDED COUMADIN/WARFARIN INR THERAPY [facility] RANGES STANDARD DOSE: 2.0 - 3.0 Includes: PROPHYLAXIS for venous thrombosis, systemic embolization; TREATMENT for venous thrombosis and/or pulmonary embolus. HIGH RISK: Target INR is 2.5-3.5 for patients with mechanical heart valves. Performing Organization Address [facility] Phone Number [phone] [place] [address] [place] Basic Metabolic Panel (03/26/2018 7:13 AM POWER CHECKER)Only the most recent of4 resultswithin the time period is included. Sodium 139 136 - 145 meq/L [facility] Potassium 3.5 3.5 - 5.1 meq/L [facility] Chloride 106 98 - 107 meq/L [facility] CO2 27 22 - 29 meq/L [facility] BUN 14 7 - 21 mg/dL [facility] Creatinine 1.14 0.57 - 1.25 mg/dL [facility] Glucose 152 (H) 70 - 105 mg/dL [facility] Calcium 8.8 8.4 - 10.2 mg/dL [facility] EGFR 46Comment: ESTIMATED GFR IS mL/min/1.73 sq m [facility] NOT ACCURATE CREATININE [facility] CLEARANCE IN PREDICTING GLOMERULAR FILTRATION RATE. ESTIMATED GFR IS NOT APPLICABLE FOR DIALYSIS PATIENTS. Specimen Blood Performing Organization Address City/[facility] Phone Number [place] [address] [address] [place] [address] CENTER PT/aPTT (03/25/2018 7:14 AM POWER CHECKER)Only the most recent of2 resultswithin the time period is included. Protime 14.6 11.7 - 14.7 seconds [facility] INR 1.1 <=5.9 [facility] PTT 29.0 22.5 - 36.0 seconds [facility] Specimen Blood Narrative Performed At RECOMMENDED COUMADIN/WARFARIN INR THERAPY [facility] RANGES STANDARD DOSE: 2.0 - 3.0 Includes: PROPHYLAXIS for venous thrombosis, systemic embolization; TREATMENT for venous thrombosis and/or pulmonary embolus. HIGH RISK: Target INR is 2.5-3.5 for patients with mechanical heart valves. Performing Organization Address City/State/Zipcode Phone Number [address] [address] [place] Venous doppler legs bilateral (03/24/2018 6:24 AM POWER CHECKER) Ejection Fraction [facility] Impressions Performed At Right Impression [facility] 1. There is no deep venous obstruction in the common femoral, profunda femoral, femoral, popliteal, posterior tibial or peroneal veins where visualized. 2. There is no superficial venous obstruction in the great saphenous vein where visualized. Left Impression 1. There is no deep venous obstruction in the common femoral, profunda femoral, femoral, popliteal, posterior tibial or peroneal veins where visualized. 2. There is no superficial venous obstruction in the great saphenous vein where visualized. Conclusions Summary Venous duplex imaging and compression of the bilateral lower extremities were performed. The veins were technically difficult to visualize due to edema and patient body habitus. The bilateral venous systems were patent and compressible with no evidence of thrombus where visualized. Signature Velocities are measured in cm/s ; Diameters are measured in cm Narrative Performed At LAB - Lower Extremities DVT Study [facility] Demographics Patient Marbella Yusuf of Study03/24/2018 Age77 Visit [id number] Gender Female Date of Birth1940 Number Referring Anika Beal Room [id number] Physician [employer] Inspector Braden Vo Interpreting Physician HUMBERTO Gibson Procedure Type of Study: Veins: Lower Extremities DVT Study, VENOUS DOPPLER LEG, BILATERAL. Indications for Study:Evaluate for DVT. Patient Status:Routine. Study Location:Portable. Technical Quality:Adequate visualization. Risk Factors History of Disease + +----+ + !Diagnosis!Date!Commen ts ! + +----+ + !History/Risk Factors:!!ICH, Afib, CVA, DM, HTN, Former Smoker ! + +----+ + Procedure Note Interface, External Ris In - 03/24/2018 6:28 PM POWER CHECKER PV LAB - Lower Extremities DVT Study Demographics Patient Name GURINDER VILLALBA Date of Study 03/24/2018 Age 77 Visit Number [id number] Gender Female Date of 1940 Number Referring Anika Pathak Chedevi Room Number [id number] Physician [employer] Inspector Braden Vo Interpreting Alycia Lorenzana, Physician Procedure Type of Study: Veins: Lower Extremities DVT Study, VENOUS DOPPLER LEG, BILATERAL. Indications for Study:Evaluate for DVT. Patient Status:Routine. Study Location:Portable. Technical Quality:Adequate visualization. Risk Factors History of Disease + +----+ + !Diagnosis !Date!Comments ! + +----+ + !History/Risk Factors: ! !ICH, Afib, CVA, DM, HTN, Former Smoker ! + +----+ + Impressions Right Impression 1. There is no deep venous obstruction in the common femoral, profunda femoral, femoral, popliteal, posterior tibial or peroneal veins where visualized. 2. There is no superficial venous obstruction in the great saphenous vein where visualized. Left Impression 1. There is no deep venous obstruction in the common femoral, profunda femoral, femoral, popliteal, posterior tibial or peroneal veins where visualized. 2. There is no superficial venous obstruction in the great saphenous vein where visualized. Conclusions Summary Venous duplex imaging and compression of the bilateral lower extremities were performed. The veins were technically difficult to visualize due to edema and patient body habitus. The bilateral venous systems were patent and compressible with no evidence of thrombus where visualized. Signature Velocities are measured in cm/s ; Diameters are measured in cm Performing Organization Address City/State/Zipcode Phone Number [facility] MR brain without & with IV contrast (03/23/2018 2:30 PM POWER CHECKER) Narrative Performed At FINAL REPORT [employer] [facility] MRI Brain with and without contrast 03/23/2018 2:36 PM CLINICAL HISTORY: Cerebral hemorrhage suspected TIA, initial screening TECHNIQUE: Multiplanar, multisequence MR imaging of the brain was performed, utilizing the following imaging sequences: Axial T1, T2, FLAIR, GRE, DWI/ADC; sagittal T1; postcontrast axial, sagittal, and coronal T1. COMPARISON: None available. FINDINGS: Patient motion limits this examination. Pathology may be obscured. With this limitation mind, there is an approximately 10 mm nonenhancing focus of FFE dephasing with localized surrounding edema in the right middle cerebellar peduncle. While findings may reflect a cavernous malformation with recent bleeding, and acute hemorrhage cannot be excluded. There is no acute infarct, mass, hydrocephalus, extra-axial collection, or abnormal intracranial enhancement. There is mild chronic microvascular ischemia in the supratentorial white matter. There is a chronic infarct in the anterior left thalamus. There is generalized parenchymal volume loss. Normal appearing flow-voids are present in the major intracranial vascular structures. The sellar and pineal regions, craniocervical junction, orbits, face, and skull base are without worrisome finding. IMPRESSION: 1. Motion limited examination. 2. Potential hemorrhagic lesion without mass effect in the right middle cerebellar peduncle, for which correlation with noncontrast CT is recommended. 3. Mild chronic ischemic changes. Signed: Ghanshyam Villagomez MD Report Verified Date/Time:03/23/2018 14:41:46 Reading Location: [address] Neuro Reading Room Procedure Note Interface, External Ris In - 03/23/2018 2:44 PM POWER CHECKER FINAL REPORT MRI Brain with and without contrast 03/23/2018 2:36 PM CLINICAL HISTORY: Cerebral hemorrhage suspected TIA, initial screening TECHNIQUE: Multiplanar, multisequence MR imaging of the brain was performed, utilizing the following imaging sequences: Axial T1, T2, FLAIR, GRE, DWI/ADC; sagittal T1; postcontrast axial, sagittal, and coronal T1. COMPARISON: None available. FINDINGS: Patient motion limits this examination. Pathology may be obscured. With this limitation mind, there is an approximately 10 mm nonenhancing focus of FFE dephasing with localized surrounding edema in the right middle cerebellar peduncle. While findings may reflect a cavernous malformation with recent bleeding, and acute hemorrhage cannot be excluded. There is no acute infarct, mass, hydrocephalus, extra-axial collection, or abnormal intracranial enhancement. There is mild chronic microvascular ischemia in the supratentorial white matter. There is a chronic infarct in the anterior left thalamus. There is generalized parenchymal volume loss. Normal appearing flow-voids are present in the major intracranial vascular structures. The sellar and pineal regions, craniocervical junction, orbits, face, and skull base are without worrisome finding. IMPRESSION: 1. Motion limited examination. 2. Potential hemorrhagic lesion without mass effect in the right middle cerebellar peduncle, for which correlation with noncontrast CT is recommended. 3. Mild chronic ischemic changes. Signed: Ghanshyam Villagomez MD Report Verified Date/Time: 03/23/2018 14:41:46 Reading Location: [address] Neuro Reading Room Performing Organization Address City/State/Zipcode Phone Number RIS MRA neck without & with IV contrast (03/23/2018 2:30 PM POWER CHECKER) Narrative Performed At FINAL REPORT [facility] MRA brain and neck with and without contrast 03/23/2018 2:45 PM CLINICAL HISTORY: Cerebral hemorrhage suspected COMPARISON: None available TECHNIQUE: Two- and three-dimensional [id number] and contrast-enhanced MRA images of the intra- and extracranial arterial vasculature was performed, from which maximal intensity projection 3-D reconstructions were created. FINDINGS: Patient motion limits these examinations. Pathology may be obscured. With this limitation mind, there is no vessel occlusion or flow-limiting stenosis. Extracranial atherosclerotic vascular disease resulting in 25% cervical internal carotid artery stenosis bilaterally (NASCET criteria). There is apparent severe stenosis in the distal right vertebral artery, at its junction with the basilar artery. Flow is antegrade in both vertebral arteries. IMPRESSION: 1. Motion limited examination. 2. Mild extracranial atherosclerotic vascular disease. 3. 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 Signed: Ghanshyam Villagomez MD Report Verified Date/Time:03/23/2018 14:49:26 Reading Location: [address] Neuro Reading Room Procedure Note Interface, External Ris In - 03/23/2018 2:51 PM POWER CHECKER FINAL REPORT MRA brain and neck with and without contrast 03/23/2018 2:45 PM CLINICAL HISTORY: Cerebral hemorrhage suspected COMPARISON: None available TECHNIQUE: Two- and three-dimensional [id number] and contrast-enhanced MRA images of the intra- and extracranial arterial vasculature was performed, from which maximal intensity projection 3-D reconstructions were created. FINDINGS: Patient motion limits these examinations. Pathology may be obscured. With this limitation mind, there is no vessel occlusion or flow-limiting stenosis. Extracranial atherosclerotic vascular disease resulting in 25% cervical internal carotid artery stenosis bilaterally (NASCET criteria). There is apparent severe stenosis in the distal right vertebral artery, at its junction with the basilar artery. Flow is antegrade in both vertebral arteries. IMPRESSION: 1. Motion limited examination. 2. Mild extracranial atherosclerotic vascular disease. 3. 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 Signed: Ghanshyam Villagomez MD Report Verified Date/Time: 03/23/2018 14:49:26 Reading Location: [address] Neuro Reading Room Performing Organization Address City/State/Zipcode Phone Number [employer] RIS MRA head with and without contrast (03/23/2018 2:30 PM POWER CHECKER) Narrative Performed At [employer] MRA brain and neck with and without contrast 03/23/2018 2:45 PM CLINICAL HISTORY: Cerebral hemorrhage suspected COMPARISON: None available TECHNIQUE: Two- and three-dimensional onwe-lt-ipmvtx and contrast-enhanced MRA images of the intra- and extracranial arterial vasculature was performed, from which maximal intensity projection 3-D reconstructions were created. FINDINGS: Patient motion limits these examinations. Pathology may be obscured. With this limitation mind, there is no vessel occlusion or flow-limiting stenosis. Extracranial atherosclerotic vascular disease resulting in 25% cervical internal carotid artery stenosis bilaterally (NASCET criteria). There is apparent severe stenosis in the distal right vertebral artery, at its junction with the basilar artery. Flow is antegrade in both vertebral arteries. IMPRESSION: 1. Motion limited examination. 2. Mild extracranial atherosclerotic vascular disease. 3. 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 Signed: Ghanshyam Villagomez MD Report Verified Date/Time:03/23/2018 14:49:26 Reading Location: [address] Neuro Reading Room Procedure Note Interface, External Ris In - 03/23/2018 2:51 PM POWER CHECKER FINAL REPORT MRA brain and neck with and without contrast 03/23/2018 2:45 PM CLINICAL HISTORY: Cerebral hemorrhage suspected COMPARISON: None available TECHNIQUE: Two- and three-dimensional iutx-sy-kvafhj and contrast-enhanced MRA images of the intra- and extracranial arterial vasculature was performed, from which maximal intensity projection 3-D reconstructions were created. FINDINGS: Patient motion limits these examinations. Pathology may be obscured. With this limitation mind, there is no vessel occlusion or flow-limiting stenosis. Extracranial atherosclerotic vascular disease resulting in 25% cervical internal carotid artery stenosis bilaterally (NASCET criteria). There is apparent severe stenosis in the distal right vertebral artery, at its junction with the basilar artery. Flow is antegrade in both vertebral arteries. IMPRESSION: 1. Motion limited examination. 2. Mild extracranial atherosclerotic vascular disease. 3. 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 Signed: Ghanshyam Villagomez MD Report Verified Date/Time: 03/23/2018 14:49:26 Reading Location: [facility] B1 [id number] Neuro Reading Room Performing Organization Address City/[facility] Phone Number [facility] Troponin I (03/23/2018 9:34 AM POWER CHECKER)Only the most recent of2 resultswithin the time period is included. Troponin I 0.02 0.00 - 0.03 ng/mL [facility] Specimen Blood Performing Organization Address [facility]/[employer] Phone Number [address] [address] CENTER Phosphorus (03/23/2018 4:40 AM POWER CHECKER) Phosphorus 3.0 2.3 - 4.7 mg/dL [facility] Specimen Blood Narrative Performed At Once on admission and Daily AM afterwards [facility] Once on admission and Daily AM afterwards Once on admission and Daily AM afterwards Performing Organization Address City/[facility]/[employer] Phone Number [address] [address] CENTER Magnesium (03/23/2018 4:40 AM POWER CHECKER) Magnesium 1.9 1.6 - 2.6 mg/dL [facility] Specimen Blood Narrative Performed At Once on admission and Daily AM afterwards [facility] Once on admission and Daily AM afterwards Once on admission and Daily AM afterwards Performing Organization Address [facility]/[employer] Phone Number [facility] [address] [phone] [place] Drug screen, urine, comprehensive (03/23/2018 12:55 AM POWER CHECKER) Specimen Urine Narrative Performed At ECG 12 lead (03/22/2018 5:22 PM POWER CHECKER) Narrative Performed At Ventricular Rate 88 BPM GE MUSE Atrial Rate 81 BPM QRS Duration 76 ms Q-T Interval 426 ms QTC Calculation(Bazett) 515 ms R [place] 36 degrees T [place] 20 degrees Accelerated Junctional rhythm Nonspecific ST and T wave abnormality Prolonged QT Abnormal ECG No previous ECGs available Confirmed by MD MYERS JOSEPH P ([id number]) on 03/23/2018 2:45:08 PM Procedure Note Interface, External Ris In - 03/23/2018 2:45 PM POWER CHECKER Ventricular Rate 88 BPM Atrial Rate 81 BPM QRS Duration 76 ms Q-T Interval 426 ms QTC Calculation(Bazett) 515 ms R [place] 36 degrees T [place] 20 degrees Accelerated Junctional rhythm Nonspecific ST and T wave abnormality Prolonged QT Abnormal ECG No previous ECGs available Confirmed by MD MYERS JOSEPH P ([id number]) on 03/23/2018 2:45:08 PM Performing Organization Address City/State/Zipcode Phone Number GE MUSE aPTT (03/22/2018 3:41 PM POWER CHECKER) PTT 43.8 (H) 22.5 - 36.0 seconds [facility] Specimen Blood - Arm, Right Narrative Performed At level prior to infusions of each doses of [facility] FEIBA Performing Organization Address City/[facility]/Zipcode Phone Number [address] [address] [phone] [place] Fibrinogen (03/22/2018 3:41 PM POWER CHECKER) Fibrinogen 412 225 - 434 mg/dl [facility] Specimen Blood - Arm, Right Narrative Performed At level prior to infusions of each doses of [facility] FEIBA Performing Organization Address City/[facility]/Zipcode Phone Number [address] [address] [place] Hepatic function panel (03/22/2018 3:41 PM POWER CHECKER) Protein, Total 6.9 6.0 - 8.3 gm/dL [facility] Albumin 4.0 3.5 - 5.0 g/dL [facility] Total Bilirubin 0.6 0.2 - 1.2 mg/dL [facility] Bilirubin, Direct 0.3 0.1 - 0.5 mg/dL [facility] Alkaline Phosphatase 101 40 - 150 U/L [facility] AST 19 5 - 34 U/L [facility] ALT 18 6 - 55 U/L [facility] Specimen Blood - Arm, Right Performing Organization Address City/State/Zipcode Phone Number [facility] [address] [place] [address] CENTER after 05/11/2017 Insurance Payer Benefit Plan / Group Subscriber ID Type Phone Address [employer] - MEDICARE MGD [employer] MEDICARE ADV xxxxxxxxx Maps Contracted CARE Advance Directives For more information, please contact:[address] [phone] Code Status Date Activated Date Inactivated Comments Partial Code 03/22/2018 8:56 PM This code status was determined by: Patient Drug Protocol After Arrest Occurs? Yes Mechanical Ventilation with Intubation? No Bag/Mask? Yes Internal/External Pacemaker? No Transfer to Critical Care? No Chest Compressions? No Defibrillation/Cardioversion? No
--- OUTSIDE RECORDS SUMMARY | 2018-05-12 09:59 | XMS REPORT ---
:1940 [facility] Address [address] [place] [address] Care Team Providers Name Role Phone GREGORY ESCALANTE Unavailable Unavailable Problems This patient has no known problems. Allergies, Adverse Reactions, Alerts This patient has no known allergies or adverse reactions. Medications This patient has no known medications. Results Test Description Test Time Test Comments Text Results Atomic Results Result Comments POCT-GLUCOSE METER 2018-03-26 12:34:00 Test Item Value Reference Range Comments POC-GLUCOSE METER (BEAKER) (test 180 mg/dL 70-110 TESTED AT [address] dnxi=6368) [facility] [address] POCT-GLUCOSE [id number] 08:38:00 Test Item Value Reference Range Comments POC-GLUCOSE METER (BEAKER) 179 mg/dL 70-110 TESTED AT [address] (test nakn=0141) [facility] [address] BASIC METABOLIC [id number] 07:55:00 Test Item Value Reference Range Comments SODIUM (BEAKER) (test 139 meq/L 136-145 pizq=064) POTASSIUM (BEAKER) (test 3.5 meq/L 3.5-5.1 fjmc=997) CHLORIDE (BEAKER) (test 106 meq/L 98-107 mbwk=557) CO2 (BEAKER) (test 27 meq/L 22-29 nuaz=361) BLOOD UREA NITROGEN 14 mg/dL 7-21 (BEAKER) (test ymke=044) CREATININE (BEAKER) (test 1.14 mg/dL 0.57-1.25 qrdf=400) GLUCOSE RANDOM (BEAKER) 152 mg/dL 70-105 (test biqq=210) CALCIUM (BEAKER) (test 8.8 mg/dL 8.4-10.2 grzd=087) EGFR (BEAKER) (test 46 mL/min/1.73 sq m ESTIMATED GFR IS NOT clth=4447) ACCURATE CREATININE CLEARANCE IN PREDICTING GLOMERULAR FILTRATION RATE. ESTIMATED GFR IS NOT APPLICABLE FOR DIALYSIS PATIENTS. PROTHROMBIN [id number] 07:48:00 Test Item Value Reference Range Comments PROTIME (BEAKER) (test ehao=114) 14.5 seconds 11.7-14.7 INR (BEAKER) (test smdg=487) 1.1 <=5.9 RECOMMENDED COUMADIN/WARFARIN INR THERAPY RANGESSTANDARD DOSE: 2.0 - 3.0 Includes: PROPHYLAXIS forvenous thrombosis, systemic embolization; TREATMENT for venous thrombosis and/or pulmonary embolus.HIGH RISK: Target INR is 2.5-3.5 for patients with mechanical heart valves.CBC W/PLT COUNT & AUTO [id number] 07:39:00 Test Item Value Reference Range Comments WHITE BLOOD CELL COUNT (BEAKER) (test doex=588) 4.7 K/ L 3.5-10.5 RED BLOOD CELL COUNT (BEAKER) (test whyf=239) 3.12 M/ L 3.93-5.22 HEMOGLOBIN (BEAKER) (test uznf=225) 9.4 GM/DL 11.2-15.7 HEMATOCRIT (BEAKER) (test xtvo=777) 29.1 % 34.1-44.9 MEAN CORPUSCULAR VOLUME (BEAKER) (test khml=884) 93.3 fL 79.4-94.8 MEAN CORPUSCULAR HEMOGLOBIN (BEAKER) (test 30.1 pg 25.6-32.2 btvc=225) MEAN CORPUSCULAR HEMOGLOBIN CONC (BEAKER) (test 32.3 GM/DL 32.2-35.5 fmxk=641) RED CELL DISTRIBUTION WIDTH (BEAKER) (test 12.9 % 11.7-14.4 uqop=681) PLATELET COUNT (BEAKER) (test uhkk=186) 139 K/CU MM 150-450 MEAN PLATELET VOLUME (BEAKER) (test zukz=398) 10.9 fL 9.4-12.3 NUCLEATED RED BLOOD CELLS (BEAKER) (test 0 /100 WBC 0-0 brwy=178) NEUTROPHILS RELATIVE PERCENT (BEAKER) (test 60 % ydqv=223) LYMPHOCYTES RELATIVE PERCENT (BEAKER) (test 29 % obnt=930) MONOCYTES RELATIVE PERCENT (BEAKER) (test 9 % bcsu=514) EOSINOPHILS RELATIVE PERCENT (BEAKER) (test 2 % iszt=909) BASOPHILS RELATIVE PERCENT (BEAKER) (test 0 % cpjn=008) NEUTROPHILS ABSOLUTE COUNT (BEAKER) (test 2.79 K/ L 1.56-6.13 tslk=919) LYMPHOCYTES ABSOLUTE COUNT (BEAKER) (test 1.35 K/ L 1.18-3.74 lgxt=744) MONOCYTES ABSOLUTE COUNT (BEAKER) (test 0.44 K/ L 0.24-0.36 nxwo=376) EOSINOPHILS ABSOLUTE COUNT (BEAKER) (test 0.08 K/ L 0.04-0.36 tobc=114) BASOPHILS ABSOLUTE COUNT (BEAKER) (test 0.02 K/ L 0.01-0.08 wllg=952) IMMATURE GRANULOCYTES-RELATIVE PERCENT (BEAKER) 0 % 0-1 (test sqdk=3667) POCT-GLUCOSE [id number] 22:40:00 Test Item Value Reference Range Comments POC-GLUCOSE METER (BEAKER) 154 mg/dL 70-110 TESTED AT [address] (test knbr=2680) [place] [address] POCT-GLUCOSE [id number] 17:25:00 Test Item Value Reference Range Comments POC-GLUCOSE METER (BEAKER) 181 mg/dL 70-110 TESTED AT [address] (test bwpv=7955) [place] [address] POCT-GLUCOSE [id number] 11:54:00 Test Item Value Reference Range Comments POC-GLUCOSE METER (BEAKER) 207 mg/dL 70-110 TESTED AT [address] (test kvfe=4250) [place] [address] CBC W/PLT COUNT & AUTO [id number] 07:44:00 Test Item Value Reference Range Comments WHITE BLOOD CELL COUNT (BEAKER) (test pqeb=036) 5.5 K/ L 3.5-10.5 RED BLOOD CELL COUNT (BEAKER) (test njvo=710) 3.11 M/ L 3.93-5.22 HEMOGLOBIN (BEAKER) (test cvso=669) 9.5 GM/DL 11.2-15.7 HEMATOCRIT (BEAKER) (test jqhi=525) 28.9 % 34.1-44.9 MEAN CORPUSCULAR VOLUME (BEAKER) (test bnyl=969) 92.9 fL 79.4-94.8 MEAN CORPUSCULAR HEMOGLOBIN (BEAKER) (test 30.5 pg 25.6-32.2 qeow=468) MEAN CORPUSCULAR HEMOGLOBIN CONC (BEAKER) (test 32.9 GM/DL 32.2-35.5 hzff=152) RED CELL DISTRIBUTION WIDTH (BEAKER) (test 12.9 % 11.7-14.4 kumi=250) PLATELET COUNT (BEAKER) (test rpyj=111) 126 K/CU MM 150-450 MEAN PLATELET VOLUME (BEAKER) (test tnmw=686) 11.3 fL 9.4-12.3 NUCLEATED RED BLOOD CELLS (BEAKER) (test 0 /100 WBC 0-0 nrko=628) NEUTROPHILS RELATIVE PERCENT (BEAKER) (test 63 % zoip=688) LYMPHOCYTES RELATIVE PERCENT (BEAKER) (test 27 % pqzc=439) MONOCYTES RELATIVE PERCENT (BEAKER) (test 7 % effa=700) EOSINOPHILS RELATIVE PERCENT (BEAKER) (test 2 % lvoo=290) BASOPHILS RELATIVE PERCENT (BEAKER) (test 0 % mbrb=785) NEUTROPHILS ABSOLUTE COUNT (BEAKER) (test 3.48 K/ L 1.56-6.13 nkhm=653) LYMPHOCYTES ABSOLUTE COUNT (BEAKER) (test 1.51 K/ L 1.18-3.74 juoa=276) MONOCYTES ABSOLUTE COUNT (BEAKER) (test 0.38 K/ L 0.24-0.36 sozx=513) EOSINOPHILS ABSOLUTE COUNT (BEAKER) (test 0.11 K/ L 0.04-0.36 ncgn=085) BASOPHILS ABSOLUTE COUNT (BEAKER) (test 0.02 K/ L 0.01-0.08 mmlm=788) IMMATURE GRANULOCYTES-RELATIVE PERCENT (BEAKER) 1 % 0-1 (test lnvp=1027) [id number] 07:14:00 Test Item Value Reference Range Comments PROTIME (BEAKER) (test dpsz=671) 14.6 seconds 11.7-14.7 INR (BEAKER) (test kezw=473) 1.1 <=5.9 PARTIAL THROMBOPLASTIN TIME (BEAKER) (test 29.0 seconds 22.5-36.0 bkzw=710) RECOMMENDED COUMADIN/WARFARIN INR THERAPY RANGESSTANDARD DOSE: 2.0 - 3.0 Includes: PROPHYLAXIS forvenous thrombosis, systemic embolization; TREATMENT for venous thrombosis and/or pulmonary embolus.HIGH RISK: Target INR is 2.5-3.5 for patients with mechanical heart valves.PROTHROMBIN [id number] 07:14: 00 Test Item Value Reference Range Comments PROTIME (BEAKER) (test cqtl=730) 14.6 seconds 11.7-14.7 INR (BEAKER) (test obfn=564) 1.1 <=5.9 RECOMMENDED COUMADIN/WARFARIN INR THERAPY RANGESSTANDARD DOSE: 2.0 - 3.0 Includes: PROPHYLAXIS forvenous thrombosis, systemic embolization; TREATMENT for venous thrombosis and/or pulmonary embolus.HIGH RISK: Target INR is 2.5-3.5 for patients with mechanical heart valves.BASIC METABOLIC [id number] 07:08: 00 Test Item Value Reference Range Comments SODIUM (BEAKER) (test 140 meq/L 136-145 hjel=256) POTASSIUM (BEAKER) (test 3.5 meq/L 3.5-5.1 vcmi=206) CHLORIDE (BEAKER) (test 107 meq/L 98-107 zkio=497) CO2 (BEAKER) (test 27 meq/L 22-29 rdzh=115) BLOOD UREA NITROGEN 12 mg/dL 7-21 (BEAKER) (test ulvx=283) CREATININE (BEAKER) (test 1.12 mg/dL 0.57-1.25 inmh=549) GLUCOSE RANDOM (BEAKER) 129 mg/dL 70-105 (test ypcz=499) CALCIUM (BEAKER) (test 8.5 mg/dL 8.4-10.2 bclj=006) EGFR (BEAKER) (test 47 mL/min/1.73 sq m ESTIMATED GFR IS NOT mdrf=2376) ACCURATE CREATININE CLEARANCE IN PREDICTING GLOMERULAR FILTRATION RATE. ESTIMATED GFR IS NOT APPLICABLE FOR DIALYSIS PATIENTS. POCT-GLUCOSE [id number] 06:34:00 Test Item Value Reference Range Comments POC-GLUCOSE METER (BEAKER) 146 mg/dL 70-110 TESTED AT [facility] [employer] [facility] (test byvq=4989) [facility] [address] POCT-GLUCOSE [id number] 00:09:00 Test Item Value Reference Range Comments POC-GLUCOSE METER (BEAKER) 184 mg/dL 70-110 TESTED AT [address] (test rsws=7505) [facility] [address] POCT-GLUCOSE [id number] 17:30:00 Test Item Value Reference Range Comments POC-GLUCOSE METER (BEAKER) 170 mg/dL 70-110 TESTED AT [address] (test pzdi=4499) [facility] [address] POCT-GLUCOSE [id number] 12:42:00 Test Item Value Reference Range Comments POC-GLUCOSE METER (BEAKER) 200 mg/dL 70-110 TESTED AT [address] (test hogv=8032) [facility] [address] POCT-GLUCOSE [id number] 06:26:00 Test Item Value Reference Range Comments POC-GLUCOSE METER (BEAKER) 155 mg/dL 70-110 TESTED AT [address] (test uqij=9378) [facility] [address] BASIC METABOLIC [id number] 05:37:00 Test Item Value Reference Range Comments SODIUM (BEAKER) (test 139 meq/L 136-145 faiv=189) POTASSIUM (BEAKER) (test 4.0 meq/L 3.5-5.1 elzr=033) CHLORIDE (BEAKER) (test 111 meq/L 98-107 zzfr=686) CO2 (BEAKER) (test 25 meq/L 22-29 chrv=605) BLOOD UREA NITROGEN 13 mg/dL 7-21 (BEAKER) (test yrok=333) CREATININE (BEAKER) (test 1.02 mg/dL 0.57-1.25 tjiz=238) GLUCOSE RANDOM (BEAKER) 167 mg/dL 70-105 (test uqkl=301) CALCIUM (BEAKER) (test 8.3 mg/dL 8.4-10.2 vtbb=777) EGFR (BEAKER) (test 53 mL/min/1.73 sq m ESTIMATED GFR IS NOT jsrg=5665) ACCURATE CREATININE CLEARANCE IN PREDICTING GLOMERULAR FILTRATION RATE. ESTIMATED GFR IS NOT APPLICABLE FOR DIALYSIS PATIENTS. PT/[id number] 05:17:00 Test Item Value Reference Range Comments PROTIME (BEAKER) (test froy=629) 16.3 seconds 11.7-14.7 INR (BEAKER) (test suxn=320) 1.3 <=5.9 PARTIAL THROMBOPLASTIN TIME (BEAKER) (test 36.3 seconds 22.5-36.0 odmn=948) RECOMMENDED COUMADIN/WARFARIN INR THERAPY RANGESSTANDARD DOSE: 2.0 - 3.0 Includes: PROPHYLAXIS forvenous thrombosis, systemic embolization; TREATMENT for venous thrombosis and/or pulmonary embolus.HIGH RISK: Target INR is 2.5-3.5 for patients with mechanical heart valves.PROTHROMBIN [id number] 05:16: 00 Test Item Value Reference Range Comments PROTIME (BEAKER) (test coea=236) 16.3 seconds 11.7-14.7 INR (BEAKER) (test psyr=115) 1.3 <=5.9 RECOMMENDED COUMADIN/WARFARIN INR THERAPY RANGESSTANDARD DOSE: 2.0 - 3.0 Includes: PROPHYLAXIS forvenous thrombosis, systemic embolization; TREATMENT for venous thrombosis and/or pulmonary embolus.HIGH RISK: Target INR is 2.5-3.5 for patients with mechanical heart valves.CBC W/PLT COUNT & AUTO [id number] 05:04:00 Test Item Value Reference Range Comments WHITE BLOOD CELL COUNT (BEAKER) (test fqro=946) 5.9 K/ L 3.5-10.5 RED BLOOD CELL COUNT (BEAKER) (test qrhm=918) 2.77 M/ L 3.93-5.22 HEMOGLOBIN (BEAKER) (test pkxc=485) 8.6 GM/DL 11.2-15.7 HEMATOCRIT (BEAKER) (test qepf=264) 26.8 % 34.1-44.9 MEAN CORPUSCULAR VOLUME (BEAKER) (test zqzc=843) 96.8 fL 79.4-94.8 MEAN CORPUSCULAR HEMOGLOBIN (BEAKER) (test 31.0 pg 25.6-32.2 zuvt=360) MEAN CORPUSCULAR HEMOGLOBIN CONC (BEAKER) (test 32.1 GM/DL 32.2-35.5 odha=044) RED CELL DISTRIBUTION WIDTH (BEAKER) (test 13.1 % 11.7-14.4 fyqk=003) PLATELET COUNT (BEAKER) (test qnce=596) 102 K/CU MM 150-450 MEAN PLATELET VOLUME (BEAKER) (test facv=876) 10.7 fL 9.4-12.3 NUCLEATED RED BLOOD CELLS (BEAKER) (test 0 /100 WBC 0-0 rpfy=191) NEUTROPHILS RELATIVE PERCENT (BEAKER) (test 63 % cqxh=494) LYMPHOCYTES RELATIVE PERCENT (BEAKER) (test 27 % buqr=304) MONOCYTES RELATIVE PERCENT (BEAKER) (test 7 % dzhf=269) EOSINOPHILS RELATIVE PERCENT (BEAKER) (test 2 % qeze=899) BASOPHILS RELATIVE PERCENT (BEAKER) (test 0 % ceoe=691) NEUTROPHILS ABSOLUTE COUNT (BEAKER) (test 3.75 K/ L 1.56-6.13 glup=427) LYMPHOCYTES ABSOLUTE COUNT (BEAKER) (test 1.58 K/ L 1.18-3.74 xjby=132) MONOCYTES ABSOLUTE COUNT (BEAKER) (test 0.42 K/ L 0.24-0.36 tklb=614) EOSINOPHILS ABSOLUTE COUNT (BEAKER) (test 0.13 K/ L 0.04-0.36 vswy=502) BASOPHILS ABSOLUTE COUNT (BEAKER) (test 0.02 K/ L 0.01-0.08 uyiu=695) IMMATURE GRANULOCYTES-RELATIVE PERCENT (BEAKER) 0 % 0-1 (test pual=9665) POCT-GLUCOSE [id number] 01:01:00 Test Item Value Reference Range Comments POC-GLUCOSE METER (BEAKER) 177 mg/dL 70-110 TESTED AT [address] (test njrl=8869) [facility] [address] POCT-GLUCOSE [id number] 19:48:00 Test Item Value Reference Range Comments POC-GLUCOSE METER (BEAKER) 220 mg/dL 70-110 TESTED AT [address] (test ubzt=1387) [facility] [address] PROTHROMBIN [id number] 19:03:00 Test Item Value Reference Range Comments PROTIME (BEAKER) (test ewhu=989) 16.6 seconds 11.7-14.7 INR (BEAKER) (test kyzd=659) 1.3 <=5.9 RECOMMENDED COUMADIN/WARFARIN INR THERAPY RANGESSTANDARD DOSE: 2.0 - 3.0 Includes: PROPHYLAXIS forvenous thrombosis, systemic embolization; TREATMENT for venous thrombosis and/or pulmonary embolus.HIGH RISK: Target INR is 2.5-3.5 for patients with mechanical heart valves.PROTHROMBIN [id number] 15:33: 00 Test Item Value Reference Range Comments PROTIME (BEAKER) (test qfzw=493) 16.7 seconds 11.7-14.7 INR (PHIL) (test nctr=972) 1.4 <=5.9 RECOMMENDED COUMADIN/WARFARIN INR THERAPY RANGESSTANDARD DOSE: 2.0 - 3.0 Includes: PROPHYLAXIS forvenous thrombosis, systemic embolization; TREATMENT for venous thrombosis and/or pulmonary embolus.HIGH RISK: Target INR is 2.5-3.5 for patients with mechanical heart valves.MR, MRA, BRAIN, [id number] 14:49: 00FINAL REPORT MRA brain and neck with and without contrast 03/23/2018 2:45 PM CLINICAL HISTORY: Cerebral hemorrhage suspected COMPARISON: None available TECHNIQUE: Two- and three-dimensional grjm-ic-dazdmt and contrast-enhanced MRA images of the intra- [...] intracranial vertebral artery stenosis. Signed: Ghanshyam Villagomez Verified Date/Time: 03/23/2018 14:49:26 Reading Location: [address] Neuro Reading Room MR, MRA, NECK, [id number] 14:49:00FINAL REPORT MRA brain and neck with and without contrast 03/23/2018 2:45 PM CLINICAL HISTORY: Cerebral hemorrhage suspected COMPARISON: None available TECHNIQUE: Two- and three-dimensional blle-xb-gvxpbu and contrast-enhanced MRA images of the intra- [...] intracranial vertebral artery stenosis. Signed: Ghanshyam Villagomez MDReport Verified Date/Time: 03/23/2018 14:49 :26 Reading Location: [address] Neuro Reading Room MR, BRAIN, [id number] 14:41 :00FINAL REPORT MRI Brain with and without contrast 03/23 2:36 PM CLINICAL HISTORY: Cerebral hemorrhage suspectedTIA, initial screening TECHNIQUE: Multiplanar, multisequence MRimaging of the brain was performed, utilizing the [...] 3. Mild chronic ischemic changes. Signed: Ghanshyam VillagomezMDReport Verified Date/ Time: 03/23/2018 14:41:46 Reading Location: [address] Neuro Reading Room POCT- GLUCOSE [id number] 14:34:00 Test Item Value Reference Range Comments POC-GLUCOSE METER (BEAKER) 209 mg/dL 70-110 TESTED AT [address] (test elvk=5231) [place] [address] TROPONIN [id number] 10:27:00 Test Item Value Reference Range Comments TROPONIN I (BEAKER) (test cfss=170) 0.02 ng/mL 0.00-0.03 PROTHROMBIN [id number] 10:02:00 Test Item Value Reference Range Comments PROTIME (BEAKER) (test cgjt=539) 16.9 seconds 11.7-14.7 INR (BEAKER) (test fkqo=127) 1.4 <=5.9 RECOMMENDED COUMADIN/WARFARIN INR THERAPY RANGESSTANDARD DOSE: 2.0 - 3.0 Includes: PROPHYLAXIS forvenous thrombosis, systemic embolization; TREATMENT for venous thrombosis and/or pulmonary embolus.HIGH RISK: Target INR is 2.5-3.5 for patients with mechanical heart valves.POCT-GLUCOSE [id number] 06:30:00 Test Item Value Reference Range Comments POC-GLUCOSE METER (BEAKER) 190 mg/dL 70-110 TESTED AT [address] (test fceh=5488) [place] [address] CBC W/PLT COUNT & AUTO [id number] 05:44:00 Test Item Value Reference Range Comments WHITE BLOOD CELL COUNT (BEAKER) (test xubm=966) 9.0 K/ L 3.5-10.5 RED BLOOD CELL COUNT (BEAKER) (test ybbl=952) 3.20 M/ L 3.93-5.22 HEMOGLOBIN (BEAKER) (test gcpz=011) 9.6 GM/DL 11.2-15.7 HEMATOCRIT (BEAKER) (test yenm=530) 30.1 % 34.1-44.9 MEAN CORPUSCULAR VOLUME (BEAKER) (test nack=673) 94.1 fL 79.4-94.8 MEAN CORPUSCULAR HEMOGLOBIN (BEAKER) (test 30.0 pg 25.6-32.2 hssd=989) MEAN CORPUSCULAR HEMOGLOBIN CONC (BEAKER) (test 31.9 GM/DL 32.2-35.5 kmwm=387) RED CELL DISTRIBUTION WIDTH (BEAKER) (test 13.2 % 11.7-14.4 uwhv=129) PLATELET COUNT (BEAKER) (test pfzh=741) 130 K/CU MM 150-450 MEAN PLATELET VOLUME (BEAKER) (test xujh=824) 10.9 fL 9.4-12.3 NUCLEATED RED BLOOD CELLS (BEAKER) (test 0 /100 WBC 0-0 fvsy=628) NEUTROPHILS RELATIVE PERCENT (BEAKER) (test 82 % slwt=991) LYMPHOCYTES RELATIVE PERCENT (BEAKER) (test 11 % fson=997) MONOCYTES RELATIVE PERCENT (BEAKER) (test 6 % vmsv=798) EOSINOPHILS RELATIVE PERCENT (BEAKER) (test 0 % oqkr=407) BASOPHILS RELATIVE PERCENT (BEAKER) (test 0 % fhfr=411) NEUTROPHILS ABSOLUTE COUNT (BEAKER) (test 7.39 K/ L 1.56-6.13 bzaz=520) LYMPHOCYTES ABSOLUTE COUNT (BEAKER) (test 1.01 K/ L 1.18-3.74 nvgh=769) MONOCYTES ABSOLUTE COUNT (BEAKER) (test 0.50 K/ L 0.24-0.36 pgvq=541) EOSINOPHILS ABSOLUTE COUNT (BEAKER) (test 0.00 K/ L 0.04-0.36 jvmq=462) BASOPHILS ABSOLUTE COUNT (BEAKER) (test 0.01 K/ L 0.01-0.08 nomu=959) IMMATURE GRANULOCYTES-RELATIVE PERCENT (BEAKER) 1 % 0-1 (test hixr=0150) [id number] 05:37:00 Test Item Value Reference Range Comments PHOSPHORUS (BEAKER) (test crbv=247) 3.0 mg/dL 2.3-4.7 Once on admission and Daily AM afterwardsOnce on admission and Daily AM afterwardsOnce on admission and Daily AM [id number] 05:37:00 Test Item Value Reference Range Comments MAGNESIUM (BEAKER) (test lzdr=293) 1.9 mg/dL 1.6-2.6 Once on admission and Daily AM afterwardsOnce on admission and Daily AM afterwardsOnce on admission and Daily AM afterwardsBASIC METABOLIC [id number] 05:37:00 Test Item Value Reference Range Comments SODIUM (BEAKER) (test 143 meq/L 136-145 lzgw=135) POTASSIUM (BEAKER) (test 4.0 meq/L 3.5-5.1 rwgi=842) CHLORIDE (BEAKER) (test 110 meq/L 98-107 ijmo=010) CO2 (BEAKER) (test 27 meq/L 22-29 itxj=283) BLOOD UREA NITROGEN 15 mg/dL 7-21 (BEAKER) (test dqcc=111) CREATININE (BEAKER) (test 1.21 mg/dL 0.57-1.25 facx=848) GLUCOSE RANDOM (BEAKER) 188 mg/dL 70-105 (test xcic=960) CALCIUM (BEAKER) (test 8.7 mg/dL 8.4-10.2 gkyg=829) EGFR (BEAKER) (test 43 mL/min/1.73 sq m ESTIMATED GFR IS NOT jcng=8614) ACCURATE CREATININE CLEARANCE IN PREDICTING GLOMERULAR FILTRATION RATE. ESTIMATED GFR IS NOT APPLICABLE FOR DIALYSIS PATIENTS. Once on admission and Daily AM afterwardsOnce on admission and Daily AM afterwardsOnce on admission and Daily AM afterwardsPROTHROMBIN [id number] 05:25:00 Test Item Value Reference Range Comments PROTIME (BEAKER) (test ohzv=993) 16.2 seconds 11.7-14.7 INR (BEAKER) (test otns=836) 1.3 <=5.9 RECOMMENDED COUMADIN/WARFARIN INR THERAPY RANGESSTANDARD DOSE: 2.0 - 3.0 Includes: PROPHYLAXIS forvenous thrombosis, systemic embolization; TREATMENT for venous thrombosis and/or pulmonary embolus.HIGH RISK: Target INR is 2.5-3.5 for patients with mechanical heart valves.TROPONIN [id number] 00:51:00 Test Item Value Reference Range Comments TROPONIN I (BEAKER) (test akqb=444) 0.03 ng/mL 0.00-0.03 At baseline and 24 hours after receiving FEIBAPROTHROMBIN TIME/[id number] 00: 21:00 Test Item Value Reference Range Comments PROTIME (BEAKER) (test hohm=636) 16.6 seconds 11.7-14.7 INR (BEAKER) (test ksjy=880) 1.3 <=5.9 RECOMMENDED COUMADIN/WARFARIN INR THERAPY RANGESSTANDARD DOSE: 2.0 - 3.0 Includes: PROPHYLAXIS forvenous thrombosis, systemic embolization; TREATMENT for venous thrombosis and/or pulmonary embolus.HIGH RISK: Target INR is 2.5-3.5 for patients with mechanical heart valves.prior to and 10 minutes post infusion , every 4 hours x 24 hours then every 12 hours x 24 hoursPOCT-GLUCOSE [id number] 23:58:00 Test Item Value Reference Range Comments POC-GLUCOSE METER (BEAKER) 227 mg/dL 70-110 TESTED AT [facility] [address] [facility] (test ilzy=4887) [facility] [address] PROTHROMBIN [id number] 19:20:00 Test Item Value Reference Range Comments PROTIME (BEAKER) (test xorq=889) 16.6 seconds 11.7-14.7 INR (BEAKER) (test gayw=993) 1.3 <=5.9 RECOMMENDED COUMADIN/WARFARIN INR THERAPY RANGESSTANDARD DOSE: 2.0 - 3.0 Includes: PROPHYLAXIS forvenous thrombosis, systemic embolization; TREATMENT for venous thrombosis and/or pulmonary embolus.HIGH RISK: Target INR is 2.5-3.5 for patients with mechanical heart valves.HEPATIC FUNCTION [id number] 16:56 :00 Test Item Value Reference Range Comments TOTAL PROTEIN (BEAKER) (test byfo=774) 6.9 gm/dL 6.0-8.3 ALBUMIN (BEAKER) (test fetc=6975) 4.0 g/dL 3.5-5.0 BILIRUBIN TOTAL (BEAKER) (test viyo=114) 0.6 mg/dL 0.2-1.2 BILIRUBIN DIRECT (BEAKER) (test pgbf=828) 0.3 mg/dL 0.1-0.5 ALKALINE PHOSPHATASE (BEAKER) (test zyog=529) 101 U/L 40-150 AST (SGOT) (BEAKER) (test gjyw=919) 19 U/L 5-34 ALT (SGPT) (BEAKER) (test zgtg=135) 18 U/L 6-55 PROTHROMBIN [id number] 16:48:00 Test Item Value Reference Range Comments PROTIME (BEAKER) (test vuss=299) 30.7 seconds 11.7-14.7 INR (BEAKER) (test nodl=601) 3.0 <=5.9 RECOMMENDED COUMADIN/WARFARIN INR THERAPY RANGESSTANDARD DOSE: 2.0 - 3.0 Includes: PROPHYLAXIS forvenous thrombosis, systemic embolization; TREATMENT for venous thrombosis and/or pulmonary embolus.HIGH RISK: Target INR is 2.5-3.5 for patients with mechanical heart valves.level prior to infusions ofeach doses of [id number] 16:48:00 Test Item Value Reference Range Comments FIBRINOGEN LEVEL (BEAKER) (test pcnw=564) 412 mg/dl 225-434 level prior to infusions of each doses of [id number] 16:48:00 Test Item Value Reference Range Comments PARTIAL THROMBOPLASTIN TIME (BEAKER) (test 43.8 seconds 22.5-36.0 nmhz=845) level prior to infusions of each doses of FEIBACBC W/PLT COUNT & AUTO [id number] 16:44:00 Test Item Value Reference Range Comments WHITE BLOOD CELL COUNT (BEAKER) (test wsav=933) 5.8 K/ L 3.5-10.5 RED BLOOD CELL COUNT (BEAKER) (test cpxo=171) 3.46 M/ L 3.93-5.22 HEMOGLOBIN (BEAKER) (test kwcg=394) 10.3 GM/DL 11.2-15.7 HEMATOCRIT (BEAKER) (test ifgc=167) 32.5 % 34.1-44.9 MEAN CORPUSCULAR VOLUME (BEAKER) (test rrws=359) 93.9 fL 79.4-94.8 MEAN CORPUSCULAR HEMOGLOBIN (BEAKER) (test 29.8 pg 25.6-32.2 wxjl=172) MEAN CORPUSCULAR HEMOGLOBIN CONC (BEAKER) (test 31.7 GM/DL 32.2-35.5 eegs=102) RED CELL DISTRIBUTION WIDTH (BEAKER) (test 13.2 % 11.7-14.4 ouwl=739) PLATELET COUNT (BEAKER) (test umrz=110) 149 K/CU MM 150-450 MEAN PLATELET VOLUME (BEAKER) (test rrxd=880) 10.9 fL 9.4-12.3 NUCLEATED RED BLOOD CELLS (BEAKER) (test 0 /100 WBC 0-0 ymra=389) NEUTROPHILS RELATIVE PERCENT (BEAKER) (test 84 % usig=773) LYMPHOCYTES RELATIVE PERCENT (BEAKER) (test 12 % nzcb=357) MONOCYTES RELATIVE PERCENT (BEAKER) (test 4 % njgr=011) EOSINOPHILS RELATIVE PERCENT (BEAKER) (test 0 % tllo=841) BASOPHILS RELATIVE PERCENT (BEAKER) (test 0 % mded=585) NEUTROPHILS ABSOLUTE COUNT (BEAKER) (test 4.85 K/ L 1.56-6.13 lmak=990) LYMPHOCYTES ABSOLUTE COUNT (BEAKER) (test 0.69 K/ L 1.18-3.74 lano=157) MONOCYTES ABSOLUTE COUNT (BEAKER) (test 0.23 K/ L 0.24-0.36 buaf=314) EOSINOPHILS ABSOLUTE COUNT (BEAKER) (test 0.00 K/ L 0.04-0.36 sjcf=459) BASOPHILS ABSOLUTE COUNT (BEAKER) (test 0.01 K/ L 0.01-0.08 raov=851) IMMATURE GRANULOCYTES-RELATIVE PERCENT (BEAKER) 0 % 0-1 (test bicn=5601)
--- NOTE | 2018-05-12 11:05 | RAD REPORT ---
EXAM DESCRIPTION: CT - Head Brain Wo Cont - 05/12/2018 10:52 am CLINICAL HISTORY: recent bleed, increased left sided weakness CVA, drowsiness COMPARISON: Head Brain Wo Cont dated 03/22/2018; Head Brain Wo Cont dated 09/12/2017 TECHNIQUE: All CT scans are performed using dose optimization technique as appropriate and may inclu de automated exposure control or mA/KV adjustment according to patient size. FINDINGS: No intracranial hemorrhage, hydrocephalus or extra-axial fluid collection.Previously noted 10 mm area of intraparenchymal hemorrhage seen in the right medial cerebellar hemisphere has resolve d.Mild generalized brain atrophy is present with mild periventricular and deep white matter chronic m icrovascular ischemic changes. The paranasal sinuses and mastoids are clear. The calvarium is intact. IMPRESSION: No acute intracranial abnormality.
[2018-05-12 11:28] LABS: Absolute Lymphocytes (CBC) 1.5 K/uL (0.7-4.9); Absolute Monocytes 0.4 K/uL (0.1-1.3); Basophils % 0.9 % (0-1.3); Eosinophils % 4.2 % (0-4.4); Hematocrit 31.6 % (36.0-45.0); Lymphocytes % 29.5 % (15.3-44.8); MPV 8.9 fL (7.6-11.3); Monocytes % 8.4 % (3.3-12.3); RBC Red Blood Cell Count 3.51 M/uL (3.86-4.86)
[2018-05-12 11:38] LABS: Magnesium 1.9 mg/dL (1.8-2.4); Potassium 4.3 mmol/L (3.5-5.1)
--- NOTE | 2018-05-12 12:09 | RAD REPORT ---
EXAM DESCRIPTION: RAD - Chest Single View - 05/12/2018 11:57 am CLINICAL HISTORY: COUGH Chest pain. COMPARISON: Chest Single View dated 03/22/2018; CHEST SINGLE VIEW dated 06/05/2010; CHEST SINGLE VIEW dated 12/26/2009 FINDINGS: Portable technique limits examination quality. The lungs are emphysematous but clear. The heart is normal in size. No displaced fractures. IMPRESSION: COPD.
[2018-05-12] MEDS ORDERED: CEFTRIAXONE/SWI 1gm 1 GM/10 ML SYR ONE (12:51)
--- NOTE | 2018-05-12 12:51 | EKG ---
Test Date: 2018-05-12 Test Time: 11:07:07 Bingo Worker: GIOVANNY MEASUREMENT RESULTS: Intervals: Rate: 55 VA: 136 QRSD: 84 QT: 482 QTc: 461 [place]: P: 55 VA: 136 QRS: 59 T: 39 INTERPRETIVE STATEMENTS: Sinus bradycardia Otherwise normal ECG Compared to ECG 03/22/2018 12:11:37 Sinus rhythm no longer present Prolonged QT interval no longer present Electronically Signed On 05-12-18 12:50:49 VALLEZ FILTER OPERATOR by Patrick Díaz
[2018-05-12 13:04] LABS: Urine Blood NEGATIVE (NEG); Urine Glucose NEGATIVE (NEG); Urine Protein 2+ (NEG)
[2018-05-12 13:05] LABS: Urine Amorphous Sediment 3+ /HPF (NONE SEEN); Urine Bacteria >50 /HPF (<20); Urine Culture Reflex Order NOT NEEDED
--- NOTE | 2018-05-12 13:09 | ER ---
Nurse's Notes [facility] Name: Leeann Villalba Age: 77 yrs Sex: Female : 1940 Arrival Date: 05/12/2018 Time: 10:00 Bed 4 Private MD: Diagnosis: Weakness;Dehydration;Urinary tract infection, site not specified Presentation: 05/12 10:20 Presenting complaint: Patient states: Woke up at 0830 this morning with increased L ss sided weakness and dizziness. 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 Pt's last known well was at 2030 last night when she went to bed. Denies headache. Pt reports residual left sided weakness from prior CVAs. Transition of care: patient was not received from another setting of care. Onset of symptoms is unknown. Risk Assessment: Do you want to hurt yourself or someone else? Patient reports no desire to harm self or others. Initial Sepsis Screen: Does the patient meet any 2 criteria? No. Patient's initial sepsis screen is negative. Does the patient have a suspected source of infection? No. Patient's initial sepsis screen is negative. Care prior to arrival: None. 10:20 Method Of Arrival: Wheelchair ss 10:20 Acuity: JEANA 2 ss Triage Assessment: 17:00 General: Appears in no apparent distress. Behavior is calm, cooperative. iw Stroke Activation: Symptom onset > 6 hours Physician: Stroke Attending; Name: ; Notified At: ; Arrived At: Physician: Chief Stroke Resident; Name: ; Notified At: ; Arrived At: Physician: Stroke Resident; Name: ; Notified At: ; Arrived At: Physician: ED Attending; Name: ; Notified At: ; Arrived At: Physician: ED Resident; Name: ; Notified At: ; Arrived At: Historical: - Allergies: 10:31 No Known Allergies; ss - PMHx: 10:31 CVA; Diabetes - NIDDM; Hyperlipidemia; Hypertension; Hypothyroidism; Myocardial ss infarction; - Immunization history:: Adult Immunizations. - Social history:: Smoking status: Patient/guardian denies using tobacco. - Family history:: not pertinent. - Ebola Screening: : Patient negative for fever greater than or equal to 101.5 degrees Fahrenheit, and additional compatible Ebola Virus Disease symptoms Patient denies exposure to infectious person Patient denies travel to an Ebola-affected area in the 21 days before illness onset. - Hospitalizations: : No recent hospitalization is reported. Screenin:45 Abuse screen: Denies threats or abuse. Denies injuries from another. Nutritional sg screening: No deficits noted. Tuberculosis screening: No symptoms or risk factors identified. Never had TB. Fall Risk None identified. Assessment: 10:45 General: Appears in no apparent distress. well groomed, well developed, well nourished, sg Behavior is calm, cooperative, appropriate for age. Pain: Denies pain. Neuro: No deficits noted. Cardiovascular: Capillary refill is brisk in bilateral fingers Patient's skin is warm and dry. Chest pain is denied. Respiratory: Airway is patent Respiratory effort is even, unlabored, Respiratory pattern is regular, symmetrical, Breath sounds are clear. GI: No deficits noted. Abdomen is round Bowel sounds present X 4 quads. : No signs and/or symptoms were reported regarding the genitourinary system. EENT: No signs and/or symptoms were reported regarding the EENT system. Derm: Skin is pink, warm \T\ dry. Musculoskeletal: No signs and/or symptoms reported regarding the musculoskeletal system. Vital Signs: 10:31 BP 130 / 55; Pulse 59; Resp 16; Temp 97.6(TE); Pulse Ox 95% on R/A; Weight 65.77 kg; ss Height 5 ft. 4 in. (162.56 cm); Pain 0/10; 11:20 BP 145 / 68; Pulse 52; Resp 16; Pulse Ox 99% on R/A; ag 10:31 Body Mass Index 24.89 (65.77 kg, 162.56 cm) ED Course: 10:00 Patient arrived in ED. sb2 10:27 Ibrahima Barnes MD is Attending Physician. rn 10:30 Triage completed. ss 10:31 Arm band placed on right wrist. ss 10:45 Patient has correct armband on for positive identification. Bed in low position. Call sg light in reach. Pulse ox on. 10:54 CT Head Brain wo Cont In Process Unspecified. EDMS 10:55 CT completed. Patient tolerated procedure well. Patient moved to CT via stretcher. sj Patient moved back from CT. 10:58 Jasmyne Jacobs, SHLOMO is Primary Nurse. iw 11:18 Inserted saline lock: 20 gauge in left antecubital area, using aseptic technique. Blood ag collected. 11:19 Magnesium Sent. ag 11:19 CBC with Diff Sent. ag 11:58 XRAY Chest (1 view) In Process Unspecified. EDMS 12:22 EKG done, by metallographic technician. reviewed by Ibrahima Barnes MD. 3 13:50 No provider procedures requiring assistance completed. IV discontinued, intact, sg bleeding controlled, No redness/swelling at site. Pressure dressing applied. Administered Medications: 12:45 Drug: Rocephin - (cefTRIAXone) 1 grams {Note: administered slow IVP as instructed by Pharmacy.} Route: IVPB; Infused Over: 30 mins; Site: right antecubital; Outcome: 13:09 Discharge ordered by . rn 13:51 Discharged to home via wheelchair, with family. iw 13:51 Condition: good 13:51 Discharge instructions given to patient, family, Instructed on discharge instructions, follow up and referral plans. medication usage, Demonstrated understanding of instructions, follow-up care, medications, Prescriptions given X 1. 13:51 Patient left the ED. iw Signatures: Dispatcher [employer] EDMS Eddie Mendez, RN RN Sharon Watson Irene, RN bIrahima Hawthorne MD MD rn Smirch, Shelby, RN RN ss Gallardo, Ana ag Billeau, Sheri sb2 Montes, Shakira 3
--- NOTE | 2018-05-12 13:10 | EDPHYS ---
Physician Documentation [facility] Name: Leeann Villalba Age: 77 yrs Sex: Female : 1940 Arrival Date: 05/12/2018 Time: 10:00 Bed 4 Private MD: ED Physician Ibrahima Barnes HPI: 05/12 10:51 This 77 yrs old Female presents to ER via Wheelchair with complaints of rn Weakness, Cough. 10:51 The patient presents to the emergency department with weakness of the left lower rn extremity. Onset: The symptoms/episode began/occurred at an unknown time. Severity of symptoms: At their worst the symptoms were moderate in the emergency department the symptoms are unchanged. The patient has experienced a previous episode. The patient has been recently seen by a physician:. REports had cerebellar hemorrhage just before , transferred to [facility], just discharged from rehab this week, reports has been having intermittent weakness and went to bed last night around 2030 and woke up with increased weakness in left leg, also + mild dizziness, feels lightheaded and dizzy, reports weakness this morning making it difficult to walk. Also not eating/drinking much lately. . Historical: - Allergies: 10:31 No Known Allergies; ss - PMHx: 10:31 CVA; Diabetes - NIDDM; Hyperlipidemia; Hypertension; Hypothyroidism; Myocardial ss infarction; - Immunization history:: Adult Immunizations. - Social history:: Smoking status: Patient/guardian denies using tobacco. - Family history:: not pertinent. - Ebola Screening: : Patient negative for fever greater than or equal to 101.5 degrees Fahrenheit, and additional compatible Ebola Virus Disease symptoms Patient denies exposure to infectious person Patient denies travel to an Ebola-affected area in the 21 days before illness onset. - Hospitalizations: : No recent hospitalization is reported. ROS: 10:51 Constitutional: Negative for fever, chills, and weight loss, Eyes: Negative for injury, rn pain, redness, and discharge, Neck: Negative for injury, pain, and swelling, Respiratory: + cough Abdomen/GI: Negative for abdominal pain, nausea, vomiting, diarrhea, and constipation, Back: Negative for injury and pain, MS/Extremity: Negative for injury and deformity, Skin: Negative for injury, rash, and discoloration, Neuro: Negative for headache, numbness, tingling, and seizure. Exam: 10:51 Constitutional: This is a well developed, well nourished patient who is awake, alert, rn and in no acute distress. Head/Face: Normocephalic, atraumatic. ENT: dry MM Cardiovascular: Regular rate and rhythm with a normal S1 and S2. No gallops, murmurs, or rubs. Normal PMI, no JVD. No pulse deficits. Respiratory: Lungs have equal breath sounds bilaterally, clear to auscultation. No increased work of breathing, no retractions or nasal flaring. Abdomen/GI: soft, non-tender MS/ Extremity: Pulses equal, no cyanosis. Neurovascular intact. Full, normal range of motion. Equal circumference. Neuro: Awake and alert, GCS 15, oriented to person, place, time, and situation. Cranial nerves II-XII grossly intact. Motor strength 3/5 LLE, able to plantar flex foot weakly but cannot lift foot off bed, strength 4/5 other extremities. Vital Signs: 10:31 BP 130 / 55; Pulse 59; Resp 16; Temp 97.6(TE); Pulse Ox 95% on R/A; Weight 65.77 kg; ss Height 5 ft. 4 in. (162.56 cm); Pain 0/10; 11:20 BP 145 / 68; Pulse 52; Resp 16; Pulse Ox 99% on R/A; ag 10:31 Body Mass Index 24.89 (65.77 kg, 162.56 cm) ss MDM: 10:27 Patient medically screened. rn 13:07 Data reviewed: vital signs, nurses notes, lab test result(s), EKG, radiologic studies, rn and as a result, I will discharge patient. Counseling: I had a detailed discussion with the patient and/or guardian regarding: the historical points, exam findings, and any diagnostic results supporting the discharge/admit diagnosis, lab results, radiology results, the need for outpatient follow up, to return to the emergency department if symptoms worsen or persist or if there are any questions or concerns that arise at home. Response to treatment: the patient's symptoms have mildly improved after treatment, and as a result, I will discharge patient. Special discussion: I discussed with the patient/guardian in detail that at this point there is no indication for admission to the hospital. It is understood, however, that if the symptoms persist or worsen the patient needs to return immediately for re-evaluation. ED course: Pt with mild dehydration, + UTI, no acute findings on CT head, most notably no new bleed, will dc home with abx and recommend oral rehydration and return if worsens. Patient has been having some weak days and some stronger days since cerebellar hemorrhage, had complete w/u at [facility], has rehab. . 05/12 10:36 Order name: CBC with Diff; Complete Time: 12:21 rn 05/12 10:36 Order name: Basic Metabolic Panel; Complete Time: 12:21 rn 05/12 10:36 Order name: CT Head Brain wo Cont; Complete Time: 12:21 rn 05/12 10:36 Order name: Urine Microscopic Only; Complete Time: 13:07 rn 05/12 10:36 Order name: Magnesium; Complete Time: 12:21 rn 05/12 12:39 Order name: Urine Dipstick--Ancillary (enter results); Complete Time: 13:07 05/12 10:36 Order name: IV Start; Complete Time: 11:20 rn 05/12 10:36 Order name: Urine Dipstick-Ancillary (obtain specimen); Complete Time: 12:28 rn 05/12 10:36 Order name: EKG - Nurse/Tech; Complete Time: 11:19 rn 05/12 10:36 Order name: EKG; Complete Time: 10:36 rn 05/12 10:36 Order name: XRAY Chest (1 view); Complete Time: 12:21 rn Administered Medications: 12:45 Drug: Rocephin - (cefTRIAXone) 1 grams {Note: administered slow IVP as instructed by Pharmacy.} Route: IVPB; Infused Over: 30 mins; Site: right antecubital; Disposition: 05/12/18 13:09 Discharged to Home. Impression: Weakness, Dehydration, Urinary tract infection, site not specified. - Condition is Stable. - Discharge Instructions: Dehydration, Adult, Urinary Tract Infection, Adult, Weakness. - Prescriptions for cefpodoxime 100 mg Oral Tablet - take 2 tablet by ORAL route every 12 hours for 10 days take with food; 40 tablet. - Medication Reconciliation Form, Thank You Letter, Antibiotic Education, Prescription Opioid Use form. - Follow up: Private Physician; When: As needed; Reason: Recheck today's complaints, Re-evaluation by your physician. - Problem is an ongoing problem. - Symptoms have improved. Signatures: Dispatcher [employer] EDEddie Humphrey RN RN sg Williams, Irene, RN RN iw Nieto, Roman, MD MD rn Smirch, Shelby, RN RN ss Corrections: (The following items were deleted from the chart) 13:51 13:09 05/12/2018 13:09 Discharged to Home. Impression: Weakness; Dehydration; Urinary iw tract infection, site not specified. Condition is Stable. Forms are Medication Reconciliation Form, Thank You Letter, Antibiotic Education, Prescription Opioid Use. Follow up: Private Physician; When: As needed; Reason: Recheck today's complaints, Re-evaluation by your physician. Problem is an ongoing problem. Symptoms have improved. rn
== END 2018-05-12 13:51 | disposition home or self-care (01) ==
LOC: ER 09:55
DX: E86.0 Dehydration (principal); N39.0 Urinary tract infection, site not specified; J44.9 Chronic obstructive pulmonary disease, unspecified; I25.2 Old myocardial infarction; Z86.73 Personal history of transient ischemic attack (TIA), and cerebral infarction without residual deficits
CPT/HCPCS: 36415; 70450; 71045; 80048; 83735; 85025; 93005; 96374; 99284; J0696; 81003; 81015